=== PATIENT | male | born 1975 | race Caucasian/White ===

== ENCOUNTER 2017-01-04 08:08 | Inpatient (IN) ==
[2017-01-04] MEDS ORDERED: SODIUM CHLORIDE 0.9% 1,000 ML IV STA (10:08)
[2017-01-04] MEDS ORDERED: ONDANSETRON 4 MG/2 ML VIAL IV STA (10:08)
--- NOTE | 2017-01-04 10:10 | Emergency Department Note ---
Mathew Cavazos Brooke, am scribing for, and in the presence of, Sid Carreno MD 10 :09. Wai Cavazos Charles R, MD, personally performed the services described in this documentation, ascribed by Juju Carmona in my presence, and it is both accurate and complete . Arrival - Arrival Chief Complaint: Non-Specific Stated Complaint: kidney problems ED Nursing Triage Note: Pt c/o kidney failure with nausea and vomiting since . Pt was seen here on but signed out AMA before admission. Mode of Arrival: Ambulatory Limitations: No Limitations Source: Patient, RN Notes Reviewed Time Seen by Provider: 01/04/17 09:20 - History of Present Illness HPI Narrative: Patient is a 41 year old male who presents to the ED with c/o nausea, vomiting, and left side pain. Patient was in the ED, on , with same complaint. He says he was told that he had renal failure and it was recommended that he be admitted. However, Patient left AMA and states I didn't want to stay. Patient is a poor historian and does not give much information. Patient says he "guesses " he is gaining weight. He says he is still urinating and does have diarrhea. Patient has PMHx of herniated disk at L4 and L5. Patient is a smoker but denies any drug use. Allergies/Adverse Reactions: Allergies Allergy/AdvReac Type Severity Reaction Status Date / Time codeine AdvReac Nausea Verified 12/31/16 17:28 ketorolac [From Toradol] AdvReac Nausea Verified 12/31/16 17:28 Review of System - Review of System 12 point system: reviewed and no additional remarkable complaints except as stated - Review of System Constitutional: Present: weight gain. Absent: fever Respiratory: Absent: respiratory distress Gastrointestinal: Present: nausea, vomiting, diarrhea Musculoskeletal: Present: other (left side pain) Skin: Absent: rash Medical,Surgical,& Family Hx - Medical History Psychological: History of: Bipolar Disorder Musculoskeletal: History of: Back/Neck Problems (Herniated Disk Lumbar) - Surgical History Orthopedic Surgeries: Surgical HX of;: Orthopedic Surgery - Family History Family History: Reports;: Family Hypertension - Social History Smoking Status: Current every day smoker Frequency of Alcohol Use: None Type of Drug Use: None Exam Vital Signs: Vital Signs Temperature 97.0 F L 01/04/17 08:36 Pulse Rate 92 H 01/04/17 08:36 Respiratory Rate 16 01/04/17 08:36 Blood Pressure 182/108 01/04/17 08:36 O2 Sat by Pulse Oximetry 96 01/04/17 08:14 - General General appearance: alert, in no apparent distress, other (poor historian) - Head Head exam: Present: atraumatic, normocephalic - Eye Eye exam: Present: normal appearance, PERRL, EOMI - ENT ENT exam: Present: normal exam - Neck Neck exam: Present: normal inspection - Chest Chest inspection: Present: normal inspection, symmetric chest wall rise - Respiratory Respiratory exam: Present: normal lung sounds bilaterally - Cardiovascular Cardiovascular exam: Present: regular rate, normal rhythm, normal heart sounds - Abdominal Exam Abdominal exam: Present: soft, normal bowel sounds. Absent: distention, tenderness - Extremities Exam Extremities exam: Present: normal inspection - Back Exam Back exam: Present: tenderness (left side) - Neurological Exam Neurological exam: Present: alert, oriented X3 - Psychiatric Psychiatric exam: Present: normal affect, normal mood - Skin Skin exam: Present: warm, dry, intact, normal color Course - Consultations Consultation #1: Hospitalist will admit patient Time: 11:54 Results - Labs CBC & BMP: 01/04/17 10:33 01/04/17 10:33 Lab Results: I have reviewed the patients labs Labs: Laboratory Tests 01/04/17 10:33 WBC 18.6 H RBC 4.56 Hgb 14.0 Hct 39.6 L MCV 86.8 L MCH 31 MCHC 35.4 RDW 13.2 Plt Count 234 D MPV 11.6 Neut % (Auto) 78.0 H Lymph % (Auto) 8.6 L Saunders % (Auto) 11.3 Eos % (Auto) 1.1 Baso % (Auto) 0.5 Neut # (Auto) 14.5 H Lymph # (Auto) 1.6 Saunders # (Auto) 2.1 H Eos # (Auto) 0.2 Baso # (Auto) 0.1 Immature Gran % 0.5 Nucleated RBC % 0.0 Immature Gran # 0.10 Nucleated RBCs # 0.00 Immature Plt Fraction 2.3 Laboratory Tests 01/04/17 01/04/17 10:33 10:33 Platelet Estimate Adequate Giant Platelets Few Hypochromasia 1+ Sodium 141 Potassium 4.3 Chloride 109 H Carbon Dioxide 21 Anion Gap 15.3 H BUN 106 H Creatinine 5.60 H GFR Calculation 14 BUN/Creatinine Ratio 18.00 Glucose 113 H Calculated Osmolality 314.3 H Calcium 8.9 D Total Bilirubin 0.80 AST 60 H ALT 94 H Alkaline Phosphatase 100 Total Protein 7.4 Albumin 3.2 L Globulin 4.2 H Albumin/Globulin Ratio 0.7 L Amylase 219 H Lipase 949.0 H Laboratory Tests 01/04/17 11:40 Serum Alcohol < 15 L - Diagnostic Findings Procedure: Abdominal x-ray: report reviewed by me (Possible splenomegaly. Possible mild enlargement of both kidneys. Ultrasound recommended.), Chest x-ray : report reviewed by me (No acute abnormality.), CT Abdomen and Pelvis: report reviewed by me, pending (1. No acute intra-abdominal or pelvic pathology. No urolithiasis. Normal appendix. 2. Asymmetry of the kidneys. left larger than right. Is there history of medical renal disease? No perinephric fat stranding suggest infection and no hyponephrosis.) Critical Care Time Critical Care Time: Yes Total Critical Care Time: 60 Disposition Clinical Impression: Acute renal failure, Hypertension, Elevated liver enzymes, Leukocytosis Case discussed with: patient Disposition: Still a Patient Condition: Stable Time of Disposition: 11:54
[2017-01-04] MEDS ORDERED: ONDANSETRON 4 MG/2 ML VIAL ONE (10:40)
[2017-01-04 10:41] LABS: Basophils # 0.1 10*3/uL (0.0-0.2); Basophils % 0.5 % (0.0-0.8); Eosinophils # 0.2 10*3/uL (0.0-0.87); Eosinophils % 1.1 % (0.00-10.9); Hematocrit 39.6 VOL% (42.0-52.0); Immature Granulocytes % 0.5 %; Lymphocytes # 1.6 10*3/uL (1.4-4.0); Lymphocytes % 8.6 % (21.2-54.2); Mean Corpuscular HGB Conc 35.4 GM/DL (32-36); Mean Corpuscular Hemoglobin 31 PG (27-34); Mean Corpuscular Volume 86.8 FL (87-102); Mean Platelet Volume 11.6 FL (9.6-12.0); Monocytes # 2.1 10*3/uL (0.11-0.8); Monocytes % 11.3 % (1.7-12.7); Neutrophils # 14.5 10*3/uL (1.4-7.4); Platelet Count 234 T/CUMM (130-400); Red Blood Count 4.56 MC/CUMM (3.8-5.5); Red Cell Distribution Width 13.2 % (9.3-17.3); White Blood Count 18.6 T/CUMM (4-12)
[2017-01-04] MEDS ORDERED: hydrALAZINE 20 MG/1 ML VIAL ONE (10:44)
[2017-01-04] MEDS ORDERED: MORPHINE 2 MG/1 ML SYRINGE ONE (10:44)
[2017-01-04] MEDS ORDERED: MORPHINE 2 MG/1 ML SYRINGE IV STA (10:48)
[2017-01-04] MEDS ORDERED: hydrALAZINE 20 MG/1 ML VIAL IV STA (10:49)
[2017-01-04 11:02] LABS: Giant Platelets Few; Hypochromasia 1+; Platelet Estimate Adequate
[2017-01-04 11:11] LABS: Albumin 3.2 G/DL (3.4-5.0); Bilirubin,Total 0.8 MG/DL (0.2-1.0); Calcium 8.9 MG/DL (8.5-10.1); Osmolality,Calculated 314.3 MOS/KG (273-304); Potassium 4.3 MMOL/L (3.5-5.1); Total Protein 7.4 G/DL (6.4-8.3)
--- NOTE | 2017-01-04 11:21 | XRay Report ---
2 view abdomen. Indication: Nausea and vomiting. The heart is normal in size. The lung bases are clear. The bowel gas pattern is normal. Borderline enlargement of the spleen. Suspected borderline enlargement of the kidneys. No abnormal calcifications. Mild degenerative changes of the spinal column and hips. Impression: Possible splenomegaly. Possible mild enlargement of both kidneys. Ultrasound recommended. PROCEDURE INTERPRETED AT [facility] DEPARTMENT OF RADIOLOGY Final Report Signed by: Dr. Jaye Paiz
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
--- NOTE | 2017-01-04 11:53 | CT Report ---
CT abdomen pelvis wo con Indication: Left flank pain. CT ABDOMEN AND PELVIS WITHOUT CONTRAST DLP: 390 mGy*cm. One or more of the following dose reduction techniques was used: Automated exposure control, adjustment of the mA and/or kV according the patient size, or use of iterative reconstruction techniques. Comparison: None. Technique: Axial noncontrast CT images of the abdomen and pelvis were obtained. Abdomen: Unenhanced liver and spleen are both slightly large. No focal lesion identified in either. Gallbladder, pancreas, and adrenal glands are unremarkable absent contrast. No focal lesion, calcification or hydronephrosis of either kidney is shown. Left kidney is larger than the right but there is no perinephric fat stranding present. Inferior mediastinal contents are within normal limits. Lung bases are clear. No bowel obstruction or inflammation. Aorta is not aneurysmal. Pelvis: Normal appendix without inflammation. Urinary bladder, prostate and rectosigmoid colon are within normal limits. No free fluid, free air or lymphadenopathy. No infiltrative bone lesions. Impression: 1. No acute intra-abdominal or pelvic pathology. No urolithiasis. Normal appendix. 2. Asymmetry of the kidneys, left larger than right. Is there history of medical renal disease? No perinephric fat stranding suggest infection and no hydronephrosis. PROCEDURE INTERPRETED AT [facility] DEPARTMENT OF RADIOLOGY Final Report Signed by: Chang Gonsalves M.D.
--- NOTE | 2017-01-04 12:43 | Hospitalist History & Physical ---
<Myra Gupta - Last Filed: 01/04/17 12:23> Assessment and Plan - Time spent with patient Time spent with patient: Greater than 30 minutes (1) Acute renal failure Status: Acute Assessment and plan: Ultrasound of kidneys ordered. Repeat labs in a.m. and monitor creatinine. Start IV fluids. Current Visit: No (2) Pancreatitis Status: Acute Assessment and plan: Start IV fluids, pain management and clear liquids. Current Visit: Yes History of Present Illness Chief complaint: abdominal pain History of present illness: Mr. Covington is a 41 year old white male with PMHx of Bipolar Disorder, Hepatitis C (Dx in 1999), chronic back/neck pain(Dr Marquis pt). He reports nausea , vomiting, diarrhea since the 1st of the month. He denies blood in urine, stool or vomitus. He denies shortness of breath, chest pain, fever, or chills. He denies alcohol use or drug use. He reports quitting smoking yesterday. He was seen in the ED on 12/31/16 at which time it was recommended to be admitted to the hospital for noted elevated Creatinine of 14.40 but patient left AMA ; today creatinine is 5.40 and he complains of generalized abdominal pain, greater to the left than right. In ED: Abd xray- possible spenomegaly; possible mild enlargement of both kidneys; US ordered. CXR: no acute abnormality. ABD/Pelvis CT: no acute intra- abdominal or pelvic pathology, no urolithiasis, normal apependix, asymmetry of the kidneys left larger than the right, there is no perinephric fat stranding suggestion infection and no hydro-nephrosis. LABS: WBC 18.6, BUN 106, creatinine 5.60, BUN 106,BUN 106; Creatinine 5.60; Calculated osmolality 314.3; AST 60; ALT 94; Lipase 949.0; Amylase 219. Noted on 12/31/16 Hepatitis C Antibody resulted: Positive After discussion with Dr Carreno in the ED and Dr Smith with Hospitalist Services. , it was agreed to admit patient for further evaluation. Patient does not have any current home medications to be reconciled. Patient denies a primary care physician. He is a patient of Dr Marquis for history of chronic back and neck pain. Allergies Allergy/AdvReac Type Severity Reaction Status Date / Time codeine AdvReac Nausea Verified 12/31/16 17:28 ketorolac [From Toradol] AdvReac Nausea Verified 12/31/16 17:28 Medical,Surgical,& Family Hx - Medical History Psychological: History of: Bipolar Disorder Gastrointestinal: History of: Hepatitis (Hepatitis C (dx in 2000)) Musculoskeletal: History of: Back/Neck Problems (Herniated Disk Lumbar) - Surgical History Orthopedic Surgeries: Surgical HX of;: Orthopedic Surgery - Family History Family History: Reports;: Family Hypertension - Social History Smoking Status: Current every day smoker (He states he quit smoking yesterday) Frequency of Alcohol Use: None Type of Drug Use: None Marital Status: Single Lives With:: Parent (he lives with his parents) Functional capacity: independent ambulation Review of systems: ROS completed and pertinent positives and negatives in the HPI. Exam - Constitutional Vitals: Period Temp Pulse Resp BP Sys/Collins Pulse Ox Last 24 Hr 97.0 F-97.0 F 92-92 16-16 182-182/108-108 96 General appearance: normal weight - Head Head exam: Present: normal inspection - Eye Eye exam: Present: EOMI Pupils: Present: OLENA - Neck Neck exam: Present: normal inspection. Absent: thyromegaly - Respiratory Respiratory exam: Present: clear to auscultation bilaterally. Absent: rhonchi, stridor, wheezes - Cardiovascular Cardiovascular exam: Present: regular rate and rhythm - GI/Abdominal GI/Abdominal exam: Present: normal bowel sounds, tenderness, soft (generalized tenderness). Absent: rebound - Extremities Exam Extremities exam: Present: full ROM. Absent: edema - Neurological Exam Neurological exam: Present: alert, oriented X3 - Psychiatric Psychiatric exam: Present: normal affect, normal mood. Absent: agitated - Skin Skin exam: Present: normal color, warm, dry Results - Labs CBC & BMP: 01/04/17 10:33 01/04/17 10:33 Lab Results: I have reviewed the past 24 hour labs Labs: NOTED 12/31/16 while in the ED (prior to leaving AMA) : Hepatitis C antibody positive Creatinine 14.40 down today to 5.60 - Diagnostic Findings Procedure: Abdominal x-ray: report reviewed by me (possible splenomegaly; possible mild enlargement of both kidneys), Chest x-ray: report reviewed by me ( no acute abnomality), CT Abdomen and Pelvis: report reviewed by me (no acute intra-abdominal or pelvic pathology; no urolithiasis; normal appendix; asymmetry of the kidneys, left larger than right; no perinephric fat stranding suggest infection and no hydronephrosis) <Mariah Smith - Last Filed: 01/04/17 17:27> History of Present Illness History of present illness: Patient seen and examined independently of BLEACH TESTER Gupta, agree with history, assessment and plan as documented. 41 y/o WM presents with abdominal pain. He denies nausea to me, does report that he has not had much of an appetite. In the ED, found to have an elevated lipase and creatinine. Of note he was in the ED 12/31 and had a creatinine of 14 and left AMA. He will now be admitted for pancreatitis and acute kidney injury. His creatinine is down to 5 today. Will start IV fluids. Renal ultrasound, urine lytes. Will consult nephrology in the am. Exam - Constitutional Vitals: Period Temp Pulse Resp BP Sys/Collins Pulse Ox Last 24 Hr 96.4 F-97.8 F 92-95 16-20 142-182/80-108 95-98 Results - Labs CBC & BMP: 01/04/17 10:33 01/04/17 10:33
[2017-01-04] MEDS ORDERED: MORPHINE 2 MG/1 ML SYRINGE IV PRN ×2 (12:58→13:05)
[2017-01-04 13:51] LABS: HIV Antigen/Antibody Result Nonreactive (Nonreactive); Hepatitis A Ab IgM Quant 0.17 Index; Hepatitis A Ab IgM Result Negative (Negative); Hepatitis B Core IgM Quant 0.06 Index; Hepatitis B Core IgM Result Negative (Negative); Hepatitis B Surface Ag Quant 0.24 Index; Hepatitis B Surface Ag Result Negative (Negative); Hepatitis C Virus Ab Quant > 11.00 Index; Hepatitis C Virus Ab Result Positive (Negative)
[2017-01-04] MEDS: SODIUM CHLORIDE 0.9% 1,000 ML IV SCH ×3 (14:00→19:30)
[2017-01-04 14:27] LABS: Apearance,Urine CLEAR (Clear); Bilirubin,Urine Negative (Negative); Blood, Urine Small mg/dL (Negative); Glucose,Urine (UA) Negative (Negative); Hyaline Casts,Urine 1 /LPF (0-3); Ketones,Urine Negative (Negative); Mucus,Urine Occasional /LPF (Occasional); Nitrite,Urine Negative (Negative); Protein,Urine Negative; RBC,Urine 2 /HPF (0-4); Urine Color Straw (Yellow); Urine Specific Gravity 1.008 (1.001-1.035); Urine Urobilinogen < 2.0 EU/DL (0.2-1.0); WBC,Urine 5 /HPF (0-6)
[2017-01-04 14:42] LABS: Barbiturates Screen,Urine Negative (Negative); Benzodiazepines Screen,Urine Negative (Negative); Cannabinoid Screen,Urine Negative (Negative); Opiate Screen,Urine Positive (Negative); Phencyclidine Screen,Urine Negative (Negative)
--- NOTE | 2017-01-04 15:08 | Ultrasound Report ---
US renal Bilateral Indication: Acute renal failure. Asymmetry of the kidneys on CT. RENAL ULTRASOUND: Grayscale and color Doppler imaging the kidneys performed. Right kidney measures 116 x 51 x 55 mm. Left kidney measures 144 x 71 x 71 mm. No hydronephrosis, mass, cyst or calcification identified on either side. Color Doppler flow at both renal cee documented. The echotexture of both kidneys is relatively isoechoic to the liver, therefore increased slightly. Impression: Asymmetry of the kidneys, left larger than right. Mildly increased echotexture of renal parenchyma suggesting medical renal disease, not otherwise specified. No hydronephrosis. PROCEDURE INTERPRETED AT [facility] DEPARTMENT OF RADIOLOGY Final Report Signed by: Chang Gonsalves M.D.
[2017-01-04] MEDS: MORPHINE 2 MG/1 ML SYRINGE IV PRN ×2 (15:35→20:44)
[2017-01-04] MEDS: ONDANSETRON 4 MG/2 ML VIAL IV PRN ×2 (15:37→22:07)
[2017-01-04] MEDS: GABAPENTIN 600 MG TABLET PO SCH ×2 (15:49→20:45)
[2017-01-04] MEDS: HydrOXYzine PAMOATE 50 MG CAPSULE PO SCH (17:45)
[2017-01-05] MEDS: MORPHINE 2 MG/1 ML SYRINGE IV PRN ×6 (00:25→20:40)
[2017-01-05] MEDS: SODIUM CHLORIDE 0.9% 1,000 ML IV SCH ×4 (00:27→16:33)
[2017-01-05 06:26] LABS: Basophils # 0.1 10*3/uL (0.0-0.2); Basophils % 0.4 % (0.0-0.8); Eosinophils # 0.3 10*3/uL (0.0-0.87); Hematocrit 34.3 VOL% (42.0-52.0); Hemoglobin 11.6 GM/DL (14.0-18.0); Immature Granulocytes % 0.5 %; Immature Granulocytes Absolute 0.07 #; Lymphocytes # 2.2 10*3/uL (1.4-4.0); Lymphocytes % 16.3 % (21.2-54.2); Mean Corpuscular HGB Conc 33.8 GM/DL (32-36); Mean Corpuscular Hemoglobin 30 PG (27-34); Mean Corpuscular Volume 87.9 FL (87-102); Mean Platelet Volume 10.6 FL (9.6-12.0); Monocytes # 1.7 10*3/uL (0.11-0.8); Monocytes % 12.3 % (1.7-12.7); Neutrophils # 9.4 10*3/uL (1.4-7.4); Neutrophils % 68.5 % (38.7-73.9); Platelet Count 196 T/CUMM (130-400); Red Cell Distribution Width 13.1 % (9.3-17.3); White Blood Count 13.7 T/CUMM (4-12)
[2017-01-05 06:38] LABS: INR 1.1; PT Patient Result 11.3 SECS
[2017-01-05 06:58] LABS: Albumin 2.6 G/DL (3.4-5.0); Bilirubin,Total 0.7 MG/DL (0.2-1.0); Calcium 8.6 MG/DL (8.5-10.1); Magnesium 1.6 MG/DL (1.8-2.4); Osmolality,Calculated 307.8 MOS/KG (273-304); Potassium 3.9 MMOL/L (3.5-5.1); Total Protein 6.1 G/DL (6.4-8.3)
[2017-01-05 07:06] LABS: VLDL CHOLESTEROL 10.8 MG/DL
[2017-01-05] MEDS: GABAPENTIN 600 MG TABLET PO SCH ×2 (08:45→20:40)
[2017-01-05] MEDS: HydrOXYzine PAMOATE 50 MG CAPSULE PO SCH ×3 (08:45→16:33)
[2017-01-05] MEDS: PANTOPRAZOLE 40 MG VIAL IV SCH (08:46)
[2017-01-05] MEDS: ARIPiprazole 10 MG TABLET PO SCH (09:48)
--- NOTE | 2017-01-05 09:51 | Nephrology Consult Note ---
History of Present Illness Chief complaint: Admitted with N/V/D, referred for resolving ROSELYN History of present illness: Mr. Covington is a 41 year old male with bipolar d/o, Hx of HCV, chronic low back pain. Seen in Ed 12/31/2016 with creatinine 14 and BUN >100. Was to be admitted, left AMA. Now with same c/o abd pain R>L. Creatinine 5.6 yesterday, down to 3.8 this am. LAEs slightly elevated and decreasing. Lipase 925. UA SG 1.008, pH 5.0, no proteinuria, trace blood 2 RBCs on micro. U/S reveals large kidneys bilat, R 11.6, L 14.4, no hydronephrosis, mass, cyst, stone. Mildly increased echogenicity. Creatinined 0.8 in 2014. WBC 18.6k on admission, down to 13 today. Home Medications Medication Instructions Recorded Confirmed Type ARIPiprazole [Abilify] 10 mg PO DAILY 01/04/17 01/04/17 History Gabapentin [Gabapentin] 600 mg PO TID 01/04/17 01/04/17 History HydrOXYzine PAMOATE CAP [Vistaril 50 mg PO TID 01/04/17 01/05/17 History Cap] traZODone [Desyrel] 300 mg PO BEDTIME 01/04/17 01/05/17 History Allergies Allergy/AdvReac Type Severity Reaction Status Date / Time codeine AdvReac Nausea Verified 12/31/16 17:28 ketorolac [From Toradol] AdvReac Nausea Verified 12/31/16 17:28 Medical,Surgical,& Family Hx - Medical History Psychological: History of: Bipolar Disorder Gastrointestinal: History of: Hepatitis (Hepatitis C (dx in 1999)) Musculoskeletal: History of: Back/Neck Problems (Herniated Disk Lumbar l4 l5 both sides) - Surgical History Orthopedic Surgeries: Surgical HX of;: Orthopedic Surgery (Left arm compound fracture) - Family History Family History: Reports;: Family Hypertension Denies;: Family Cancer - Social History Smoking Status: Former smoker Frequency of Alcohol Use: None Type of Drug Use: None Exam - Vital Signs Vital signs: Period Temp Pulse Resp BP Sys/Collins Pulse Ox Last 24 Hr 96.4 F-99.4 F 77-105 18-20 102-176/56-98 92-98 - General Appearance General appearance: well-developed, well-nourished EENT: ATNC, PERRL, mucous membranes dry, hearing intact, vision intact Neck: no JVD, no thyromegaly Respiratory: no kyphosis, clear Cardiology: no murmurs, no rub Gastrointestinal: normoactive bowel sounds, no tenderness Integumentary: no rash, warm and dry Neurologic: no focal deficit, no asterixis, alert and oriented x3 Musculoskeletal: no deformities, no erythema Psychiatric: mood/affect appropriate, cooperative Results - Labs CBC & BMP: 01/05/17 06:05 01/05/17 06:05 Assessment and Plan (1) Acute renal failure Problem details: Most likely related to volume depletion from N/V/D. Resolving rapidly, no indication for renal replacement therapy at this time. Size disccrepancy on u/s could be related to renovascular HTN. Status: Acute Assessment and plan: Urinary indices to assess for intrinsic vs prerenal process. GN serologies. Doubt paraproteinemia with normal total globulins. Doubt true pancreatitis as renal failure is the most common cause of pseudopancreatitis. Current Visit: Yes (2) Hypertension Status: Acute Current Visit: Yes
[2017-01-05 10:14] LABS: Free T4 (Free Thyroxine) 1.52 NG/DL (0.76-1.46); Thyroid Stimulating Hormone 2.84 uIU/ml (0.358-3.74)
--- NOTE | 2017-01-05 12:35 | Gastrointestinal Consult Note ---
<Cindi Griffin - Last Filed: 01/05/17 12:29> Assessment and Plan (1) Elevated liver enzymes Status: Acute Assessment and plan: 01/05-Hx of Hepatitis C with dx in 1999 with Hep RNA pending. No prior followup regarding this. Mild elevation in transaminases with AST 47, ALT 73. CT of abdomen noted as below. Plan and addendum to follow by Dr Lester. Current Visit: Yes (2) Pancreatitis Status: Acute Assessment and plan: 01/05-Elevated lipase/amylase on admission with several day history of LUQ abd pain w/o history of alcohol use. Mildly elevated transaminases. OBtain Abd US tomorrow. Repeat lipase tomorrow. Plan and addendum to follow by Dr Lester. Current Visit: Yes History of Present Illness Chief complaint: Abdominal pain History of present illness: Mr. Covington is a 41 year old male who was admitted to the hospital on yesterday with complaints of abdominal pain. Pt has a prior history of Hepatitis C (diagnosed in 1999), bipolar disorder, chronic pain followed by DR Marquis. He states that earlier this month he had onset of nausea, vomiting and diarrhea as well as some LUQ abdominal pain. He states that this came on fairly sudden however denies any coffee ground or hemetemesis as well as melena or hematochezia. He states that he has also lost approximately 20 pounds since onset however is uncertain as to this accuracy. He denies any alcohol or illicit drug use. He does have homemade tattoos and is not followed up with anyone regarding his Hepatitis C. He states he did not receive treatment for this as well. Pt recently was found to have a Creatnine of 14.4 during an ER visit however left AMA before he could be admitted despite being informed he needed to stay. He was not feeling well this week and presented back to the hospital and was found to have elevated Creatnine still at 5.4 and was then agreeable to being admitted for further workup. CT of abdomen on admission w/o contrast shows no acute [place] [address]. Mild elevation noted in transaminases. Lipase elevated at 925 as well as amylase at 219. Home Medications Medication Instructions Recorded Confirmed Type ARIPiprazole [Abilify] 10 mg PO DAILY 01/04/17 01/04/17 History Gabapentin [Gabapentin] 600 mg PO TID 01/04/17 01/04/17 History HydrOXYzine PAMOATE CAP [Vistaril 50 mg PO TID 01/04/17 01/05/17 History Cap] traZODone [Desyrel] 300 mg PO BEDTIME 01/04/17 01/05/17 History Allergies Allergy/AdvReac Type Severity Reaction Status Date / Time codeine AdvReac Nausea Verified 12/31/16 17:28 ketorolac [From Toradol] AdvReac Nausea Verified 12/31/16 17:28 Medical,Surgical,& Family Hx - Medical History Psychological: History of: Bipolar Disorder Gastrointestinal: History of: Hepatitis (Hepatitis C (dx in 1999)) Musculoskeletal: History of: Back/Neck Problems (Herniated Disk Lumbar l4 l5 both sides) - Surgical History Orthopedic Surgeries: Surgical HX of;: Orthopedic Surgery (Left arm compound fracture) - Family History Family History: Reports;: Family Hypertension Denies;: Family Cancer - Social History Smoking Status: Former smoker Frequency of Alcohol Use: None Type of Drug Use: None 12 point system: reviewed and no additional remarkable complaints except as stated - Constitutional Constitutional: Present: as per HPI - EENT Eyes: Present: as per HPI Ears: Present: as per HPI Nose, mouth and throat: Present: as per HPI - Cardiovascular Cardiovascular: Present: as per HPI - Respiratory Respiratory: Present: as per HPI - Gastrointestinal Gastrointestinal: Present: as per HPI, abdominal pain, nausea - Genitourinary Genitourinary: Present: as per HPI - Musculoskeletal Musculoskeletal: Present: as per HPI - Neurological Neurological: Present: as per HPI - Psychiatric Psychiatric: Present: as per HPI - Endocrine Endocrine: Present: as per HPI - Hematologic/Lymphatic Hematologic/Lymphatic: Present: as per HPI Exam - Constitutional Vitals: Period Temp Pulse Resp BP Sys/Collins Pulse Ox Last 24 Hr 96.4 F-99.4 F 77-105 18-20 102-176/56-98 92-98 General appearance: normal weight, no acute distress - Head Head exam: Present: normal inspection, normocephalic - Eye Eye exam: Present: other (lids and conjunctiva unremarkable). Absent: scleral icterus - ENT ENT exam: Present: normal exam, normal oropharynx - Neck Neck exam: Present: normal inspection - Respiratory Respiratory exam: Present: clear to auscultation bilaterally. Absent: rales, rhonchi, wheezes - Cardiovascular Cardiovascular exam: Present: regular rate and rhythm. Absent: diastolic murmur , JVD, systolic murmur - GI/Abdominal GI/Abdominal exam: Present: normal bowel sounds, tenderness, soft. Absent: ascites, distended, mass, organomegaly - Extremities Exam Extremities exam: Present: normal inspection, full ROM - Back Exam Back exam: Present: normal inspection - Neurological Exam Neurological exam: Present: alert, oriented X3 - Psychiatric Psychiatric exam: Present: normal affect, normal mood - Skin Skin exam: Present: normal color, warm, dry Results - Labs CBC & BMP: 01/05/17 06:05 01/05/17 06:05 Lab Results: I have reviewed the past 24 hour labs - Diagnostic Findings Procedure: CT Abdomen and Pelvis: report reviewed by me <Charanjit Lester - Last Filed: 01/05/17 17:32> History of Present Illness History of present illness: Mr. Covington is a 41 year old male Exam - Constitutional Vitals: Period Temp Pulse Resp BP Sys/Collins Pulse Ox Last 24 Hr 97 F-99.4 F 77-105 18-20 102-170/56-98 92-96 Results - Labs CBC & BMP: 01/05/17 06:05 01/05/17 06:05
--- NOTE | 2017-01-05 15:59 | Hospitalist Progress Note ---
Assessment and Plan (1) Acute renal failure Problem details: Most likely related to volume depletion from N/V/D. Resolving rapidly, no indication for renal replacement therapy at this time. Size disccrepancy on u/s could be related to renovascular HTN. Status: Acute Assessment and plan: Improving Continue IV fluids Nephrology on board Current Visit: Yes (2) Hypertension Status: Acute Current Visit: Yes (3) Pancreatitis Status: Acute Assessment and plan: Lipase elevated, clinical picture not consistent with pancreatitis Continue IV fluids Tolerating diet Current Visit: Yes Hospitalist: Subjective Interval history: No acute events overnight. Abdominal pain is better. Tolerating clear liquid diet. Exam - Constitutional Vitals: Period Temp Pulse Resp BP Sys/Collins Pulse Ox Last 24 Hr 96.4 F-99.4 F 77-105 18-20 102-170/56-98 92-96 General appearance: normal weight - Head Head exam: Present: normocephalic, atraumatic - Eye Eye exam: Present: EOMI Pupils: Present: OLENA - ENT ENT exam: Present: normal exam - Neck Neck exam: Present: normal inspection - Respiratory Respiratory exam: Present: clear to auscultation bilaterally - Cardiovascular Cardiovascular exam: Present: regular rate and rhythm - GI/Abdominal GI/Abdominal exam: Present: normal bowel sounds, soft. Absent: tenderness, rebound - Extremities Exam Extremities exam: Present: normal inspection - Back Exam Back exam: Present: normal inspection - Neurological Exam Neurological exam: Present: alert, oriented X3 - Psychiatric Psychiatric exam: Present: normal affect, normal mood - Skin Skin exam: Present: warm, intact Results - Labs CBC & BMP: 01/05/17 06:05 01/05/17 06:05
[2017-01-06] MEDS: MORPHINE 2 MG/1 ML SYRINGE IV PRN ×3 (02:06→12:57)
[2017-01-06] MEDS: SODIUM CHLORIDE 0.9% 1,000 ML IV SCH ×2 (02:33→08:22)
[2017-01-06 07:42] LABS: Calcium 9.4 MG/DL (8.5-10.1); Magnesium 1.5 MG/DL (1.8-2.4); Osmolality,Calculated 305.3 MOS/KG (273-304)
--- NOTE | 2017-01-06 08:26 | Ultrasound Report ---
Abdomen ultrasound complete. Indication: Elevated liver function tests and generalized abdominal pain. Comparison: Previous CT of the abdomen and pelvis dated 01-03, and previous ultrasound of the kidneys dated 01-04-2017. The liver is normal in size and parenchymal echogenicity without focal lesion or intrahepatic biliary ductal dilatation. The common duct measures 3 mm. There are no gallstones. There is no para cholecystic fluid or tenderness over the gallbladder. The gallbladder wall is borderline thickened at 4 mm. The pancreas is partially scattered by bowel gas. Visualized portions appear normal. There is no splenic enlargement. The IVC is patent. The abdominal aorta is of normal caliber. The left kidney is mildly prominent in size measuring 14.1 x 6.7 x 6.0 cm. The right measures 10.5 x 5.8 x 5.5 cm. The parenchymal echogenicity of the kidneys is mildly increased. No hydronephrosis. No focal lesions. Impression: 1. Borderline gallbladder wall thickening, without any other suspicious gallbladder findings. 2. Mild enlargement of the left kidney. Correlation with UA to exclude pyelonephritis. Increased renal parenchymal echogenicity, which can indicate radical renal disease. The Ultrasound images were captured and stored. PROCEDURE INTERPRETED AT [facility] [place] DEPARTMENT OF RADIOLOGY Final Report Signed by: Dr. Jaye Paiz
[2017-01-06] MEDS: PANTOPRAZOLE 40 MG VIAL IV SCH (08:52)
[2017-01-06] MEDS: HydrOXYzine PAMOATE 50 MG CAPSULE PO SCH ×3 (08:56→17:05)
[2017-01-06] MEDS: ARIPiprazole 10 MG TABLET PO SCH (09:04)
--- NOTE | 2017-01-06 10:36 | Gastrointestinal Progress Note ---
Assessment and Plan (1) Elevated liver enzymes Status: Acute Assessment and plan: 01/06-no repeat liver panel noted. Lipase levels trending downward at 245. Abdominal ultrasound without acute findings. Awaiting hepatitis C RNA results. Plan an addendum to followed by Dr. Lester. 01/05-Hx of Hepatitis C with dx in 1999 with Hep RNA pending. No prior followup regarding this. Mild elevation in transaminases with AST 47, ALT 73. CT of abdomen noted as below. Plan and addendum to follow by Dr Lester. Current Visit: Yes (2) Pancreatitis Status: Acute Assessment and plan: 01/06-lipase level trended down to 245. Abdominal ultrasounds noted as below. Will advance diet at this time. Plan an addendum to followed by Dr. Lester. 01/05-Elevated lipase/amylase on admission with several day history of LUQ abd pain w/o history of alcohol use. Mildly elevated transaminases. OBtain Abd US tomorrow. Repeat lipase tomorrow. Plan and addendum to follow by Dr Lester. Current Visit: Yes Gastroenterology - PN: Subj Interval history: CC: Abdominal pain Patient is seen, lying in bed awake and alert. Denies any abdominal pain at this time. Denies any nausea or vomiting. Abdomen is soft, nontender. Lipase is down to 245 today. Creatinine is also noted to be trending downward at 2.6. Still awaiting hepatitis C RNA results. Abdominal ultrasound with no acute findings noted. ROS: Denies shortness of breath or chest pain Exam (Progress Note) - Constitutional Vitals: Period Temp Pulse Resp BP Sys/Collins Pulse Ox Last 24 Hr 97.4 F-98.9 F 85-95 18-20 119-156/69-96 95-96 - Other Additional findings: General appearance: normal weight, no acute distress - Head Head exam: Present: normal inspection, normocephalic - Eye Eye exam: Present: other (lids and conjunctiva unremarkable). Absent: scleral icterus - ENT ENT exam: Present: normal exam, normal oropharynx - Neck Neck exam: Present: normal inspection - Respiratory Respiratory exam: Present: clear to auscultation bilaterally. Absent: rales, rhonchi, wheezes - Cardiovascular Cardiovascular exam: Present: regular rate and rhythm. Absent: diastolic murmur , JVD, systolic murmur - GI/Abdominal GI/Abdominal exam: Present: normal bowel sounds, tenderness, soft. Absent: ascites, distended, mass, organomegaly - Extremities Exam Extremities exam: Present: normal inspection, full ROM - Back Exam Back exam: Present: normal inspection - Neurological Exam Neurological exam: Present: alert, oriented X3 - Psychiatric Psychiatric exam: Present: normal affect, normal mood - Skin Skin exam: Present: normal color, warm, dry Results - Labs CBC & BMP: 01/05/17 06:05 01/06/17 07:03 Lab Results: I have reviewed the past 24 hour labs
--- NOTE | 2017-01-06 10:50 | Nephrology Progress Note ---
Nephrology - PN: Subj Interval history: Creatinine improved to 2.6 from 3.8 yesterday. Pt denies c/o SOB/pain. Brisk diuresis yesterday approx 3L UOP. Serum sodium up to 148 for mild free water deficit. NS IVFs 2 200cc/hr. Exam (PN)-Nephrology - Vital Signs Vital signs: Period Temp Pulse Resp BP Sys/Collins Pulse Ox Last 24 Hr 97.4 F-98.9 F 85-95 18-20 119-156/69-96 95-96 - General Appearance General appearance: well-developed, well-nourished EENT: ATNC, PERRL, hearing intact, vision intact Neck: no JVD, no thyromegaly Respiratory: no kyphosis, clear Cardiology: no murmurs, no rub Gastrointestinal: normoactive bowel sounds, no tenderness Integumentary: no rash, warm and dry Neurologic: no focal deficit, no asterixis, alert and oriented x3 Musculoskeletal: no deformities, no erythema Psychiatric: mood/affect appropriate, cooperative - Lab 01/05/17 06:05 01/06/17 07:03 Most recent lab results Calcium 9.4 MG/DL (8.5-10.1) 01/06/17 07:03 Magnesium 1.5 MG/DL (1.8-2.4) L 01/06/17 07:03 Assessment and Plan (1) Acute renal failure Problem details: Most likely related to volume depletion from N/V/D. Resolving rapidly, no indication for renal replacement therapy at this time. FeUrea 53% reflecting intrinsic renal process. Most likely ATN with post ATN diuresis ongoing. Status: Acute Assessment and plan: Urinary indices indicated intrinsic process. GN serologies unremarkable. The post ATN diuresis is usually appropriate. IVFs changed to replace some free water. Avoid too aggressive volume resuscitation as this continues to drive diuresis with washout of the medullary interstitium. Current Visit: Yes (2) Hypertension Status: Acute Current Visit: Yes
--- NOTE | 2017-01-06 11:40 | Hospitalist Progress Note ---
Assessment and Plan (1) Hepatitis C Status: Acute Assessment and plan: He is a previously known history of chronic hepatitis C. He has persistently mildly abnormal liver function test. He is being followed by gastroenterology. Current Visit: Yes (2) Acute renal failure Problem details: Most likely related to volume depletion from N/V/D. Resolving rapidly, no indication for renal replacement therapy at this time. FeUrea 53% reflecting intrinsic renal process. Most likely ATN with post ATN diuresis ongoing. Status: Acute Assessment and plan: His BUN and creatinine have improved from 73 and 3.8 yesterday to 50 and 2.6 respectively today. He is being followed by nephrology. I will continue him on intravenous normal saline. Current Visit: Yes (3) Pancreatitis Status: Acute Assessment and plan: He continues to complain of abdominal pain and nausea. His lipase is decreased from 925 yesterday to 245 today. He is being followed by gastroenterology. Current Visit: Yes Hospitalist: Subjective Interval history: Patient states that he is feeling better today, although he continues to complain of nausea and abdominal pain. He is being followed by gastroenterology for acute pancreatitis and chronic hepatitis C and by nephrology for acute renal failure. Exam - Constitutional Vitals: Period Temp Pulse Resp BP Sys/Collins Pulse Ox Last 24 Hr 97.4 F-98.9 F 85-91 18-20 119-156/69-96 95-96 General appearance: no acute distress - Head Head exam: Present: normal inspection - Neck Neck exam: Present: normal inspection - Respiratory Respiratory exam: Present: clear to auscultation bilaterally - Cardiovascular Cardiovascular exam: Present: regular rate and rhythm - GI/Abdominal GI/Abdominal exam: Present: normal bowel sounds, soft, other (No palpable mass or hepatosplenomegaly. Nontender.) - Extremities Exam Extremities exam: Present: normal inspection - Neurological Exam Neurological exam: Present: alert, oriented X3 - Psychiatric Psychiatric exam: Present: normal affect - Skin Skin exam: Present: normal color, warm, intact Results - Labs CBC & BMP: 01/05/17 06:05 01/06/17 07:03
[2017-01-06] MEDS: ONDANSETRON 4 MG/2 ML VIAL IV PRN (12:22)
[2017-01-06] MEDS: DEXTROSE 5% NACL 0.22% 1,000 ML IV SCH (12:28)
[2017-01-06] MEDS: oxyCODONE/ACETAMINOPHEN 5-325 MG TABLET PO PRN ×2 (15:18→21:30)
[2017-01-06] MEDS: GABAPENTIN 600 MG TABLET PO SCH (20:57)
[2017-01-07 05:30] LABS: Basophils % 0.5 % (0.0-0.8); Eosinophils # 0.3 10*3/uL (0.0-0.87); Eosinophils % 4.2 % (0.00-10.9); Hematocrit 31.9 VOL% (42.0-52.0); Immature Granulocytes % 0.5 %; Immature Granulocytes Absolute 0.04 #; Lymphocytes # 1.9 10*3/uL (1.4-4.0); Lymphocytes % 23.1 % (21.2-54.2); Mean Corpuscular HGB Conc 34.5 GM/DL (32-36); Mean Corpuscular Hemoglobin 31 PG (27-34); Mean Corpuscular Volume 88.9 FL (87-102); Mean Platelet Volume 11.2 FL (9.6-12.0); Monocytes % 11.8 % (1.7-12.7); Neutrophils # 4.9 10*3/uL (1.4-7.4); Neutrophils % 59.9 % (38.7-73.9); Platelet Count 169 T/CUMM (130-400); Red Blood Count 3.59 MC/CUMM (3.8-5.5); Red Cell Distribution Width 12.6 % (9.3-17.3); White Blood Count 8.1 T/CUMM (4-12)
[2017-01-07 06:06] LABS: Albumin 2.3 G/DL (3.4-5.0); Bilirubin,Total 0.8 MG/DL (0.2-1.0); Calcium 9.5 MG/DL (8.5-10.1); Osmolality,Calculated 296.7 MOS/KG (273-304); Potassium 3.9 MMOL/L (3.5-5.1); Total Protein 5.6 G/DL (6.4-8.3)
[2017-01-07] MEDS: PANTOPRAZOLE 40 MG VIAL IV SCH (08:07)
[2017-01-07] MEDS: ARIPiprazole 10 MG TABLET PO SCH (08:10)
[2017-01-07] MEDS: HydrOXYzine PAMOATE 50 MG CAPSULE PO SCH ×3 (08:10→16:31)
[2017-01-07] MEDS: oxyCODONE/ACETAMINOPHEN 5-325 MG TABLET PO PRN ×3 (08:10→20:56)
--- NOTE | 2017-01-07 10:34 | Hospitalist Progress Note ---
Assessment and Plan (1) Hepatitis C Status: Acute Assessment and plan: He is a previously known history of chronic hepatitis C. He has persistently mildly abnormal liver function test. He is being followed by gastroenterology. Current Visit: Yes (2) Acute renal failure Problem details: Most likely related to volume depletion from N/V/D. Resolving rapidly, no indication for renal replacement therapy at this time. FeUrea 53% reflecting intrinsic renal process. Most likely ATN with post ATN diuresis ongoing. Status: Acute Assessment and plan: His BUN and creatinine have improved from 73 and 3.8 the day before yesterday to 39 and 2.4 respectively today. He is being followed by nephrology. I will continue him on intravenous normal saline. Current Visit: Yes (3) Pancreatitis Status: Acute Assessment and plan: He is feeling much better with no abdominal pain. His serum lipase has decreased from 925-181. Current Visit: Yes Hospitalist: Subjective Interval history: Patient feels significantly better today. He is not experiencing any abdominal pain, and only experiencing mild nausea. Laboratory testing continues to demonstrate improvement of his renal function and decrease of his serum lipase. Exam - Constitutional Vitals: Period Temp Pulse Resp BP Sys/Collins Pulse Ox Last 24 Hr 97.4 F-98.1 F 63-86 16-20 132-155/71-94 93-97 General appearance: no acute distress - Head Head exam: Present: normal inspection - Neck Neck exam: Present: normal inspection - Respiratory Respiratory exam: Present: clear to auscultation bilaterally - Cardiovascular Cardiovascular exam: Present: regular rate and rhythm - GI/Abdominal GI/Abdominal exam: Present: normal bowel sounds, soft, other (Nontender with no palpable masses or hepatosplenomegaly.) - Extremities Exam Extremities exam: Present: normal inspection - Neurological Exam Neurological exam: Present: alert, oriented X3 - Psychiatric Psychiatric exam: Present: normal affect - Skin Skin exam: Present: normal color, warm, intact Results - Labs CBC & BMP: 01/07/17 04:28 01/07/17 04:28
--- NOTE | 2017-01-07 11:54 | Nephrology Progress Note ---
Nephrology - PN: Subj Interval history: Pt states he feels fine. Creatinine down to 2.4 from 2.6. Bicarb improved and free water deficit improved with bicarb containing fluids at 75cc/hr. Exam (PN)-Nephrology - Vital Signs Vital signs: Period Temp Pulse Resp BP Sys/Collins Pulse Ox Last 24 Hr 97.4 F-98.1 F 63-86 16-20 132-155/71-94 93-97 - General Appearance General appearance: well-developed, well-nourished EENT: ATNC, PERRL, mucous membranes moist, hearing intact, vision intact Neck: no JVD, no thyromegaly Respiratory: no kyphosis, clear Cardiology: no murmurs, no rub, no edema Gastrointestinal: normoactive bowel sounds, no tenderness Integumentary: no rash, warm and dry Neurologic: no focal deficit, no asterixis, alert and oriented x3 Musculoskeletal: no deformities, no erythema Psychiatric: mood/affect appropriate, cooperative - Lab 01/07/17 04:28 01/07/17 04:28 Most recent lab results Calcium 9.5 MG/DL (8.5-10.1) 01/07/17 04:28 Magnesium 1.5 MG/DL (1.8-2.4) L 01/06/17 07:03 Assessment and Plan (1) Acute renal failure Problem details: Most likely ATN, improved. eGFR 37cc/min by CKD-EPI formula, CKD 3. Status: Acute Assessment and plan: Continue current therapy. Stable for d/c from nephrology standpoint. Current Visit: Yes (2) Hypertension Status: Acute Current Visit: Yes
[2017-01-07] MEDS: DEXTROSE 5% NACL 0.22% 1,000 ML IV SCH ×3 (15:22→15:26)
[2017-01-07] MEDS: GABAPENTIN 600 MG TABLET PO SCH (20:56)
[2017-01-08 05:31] LABS: Basophils % 0.5 % (0.0-0.8); Eosinophils # 0.3 10*3/uL (0.0-0.87); Eosinophils % 3.9 % (0.00-10.9); Hematocrit 35.7 VOL% (42.0-52.0); Hemoglobin 12.3 GM/DL (14.0-18.0); Immature Granulocytes % 0.5 %; Immature Granulocytes Absolute 0.04 #; Lymphocytes # 1.9 10*3/uL (1.4-4.0); Lymphocytes % 21.4 % (21.2-54.2); Mean Corpuscular HGB Conc 34.5 GM/DL (32-36); Mean Corpuscular Hemoglobin 30 PG (27-34); Mean Corpuscular Volume 87.3 FL (87-102); Mean Platelet Volume 10.1 FL (9.6-12.0); Monocytes # 0.9 10*3/uL (0.11-0.8); Monocytes % 10.9 % (1.7-12.7); Neutrophils # 5.5 10*3/uL (1.4-7.4); Neutrophils % 62.8 % (38.7-73.9); Platelet Count 170 T/CUMM (130-400); Red Blood Count 4.09 MC/CUMM (3.8-5.5); Red Cell Distribution Width 12.3 % (9.3-17.3); White Blood Count 8.7 T/CUMM (4-12)
[2017-01-08] MEDS: oxyCODONE/ACETAMINOPHEN 5-325 MG TABLET PO PRN ×3 (06:14→18:35)
[2017-01-08 06:16] LABS: Albumin 2.7 G/DL (3.4-5.0); Bilirubin,Total 0.8 MG/DL (0.2-1.0); Calcium 10.2 MG/DL (8.5-10.1); Osmolality,Calculated 295.8 MOS/KG (273-304); Potassium 3.9 MMOL/L (3.5-5.1); Total Protein 6.3 G/DL (6.4-8.3)
[2017-01-08] MEDS: PANTOPRAZOLE 40 MG VIAL IV SCH (09:04)
[2017-01-08] MEDS: ONDANSETRON 4 MG/2 ML VIAL IV PRN ×2 (09:05→20:11)
[2017-01-08] MEDS: ARIPiprazole 10 MG TABLET PO SCH (09:06)
[2017-01-08] MEDS: HydrOXYzine PAMOATE 50 MG CAPSULE PO SCH ×3 (09:06→16:47)
--- NOTE | 2017-01-08 09:10 | Hospitalist Progress Note ---
Assessment and Plan - Time spent with patient Time spent with patient: Greater than 30 minutes (1) Acute renal failure Problem details: Most likely ATN, improved. eGFR 37cc/min by CKD-EPI formula, CKD 3. Status: Acute Current Visit: Yes (2) Hypertension Status: Acute Current Visit: Yes (3) Leukocytosis Status: Acute Current Visit: Yes (4) Elevated liver enzymes Status: Acute Current Visit: Yes (5) Pancreatitis Status: Acute Current Visit: Yes (6) Hepatitis C Status: Acute Assessment and plan: I cannot immediately identify reason for his nausea and vomiting, we will continue symptomatic management with IV fluids, IV Zofran as needed for nausea and vomiting. Monitor renal function. Monitor LFTs. If he continues to have nausea and vomiting, will place him back on oral DVT prophylaxis - he is low risk, encourage ambulation. Current Visit: Yes Hospitalist: Subjective Interval history: Patient being managed for acute pancreatitis, his abdominal pain has improved significantly but he however complains of nausea this morning. I observed one episode of vomiting. He has been on regular diet for a couple of days now. There is no fever recorded. White count is down to 8.7. Lipase however trended back up, 309 today. As well as mild elevation of AST and ALT. I reviewed his ultrasound, no gallstones on ultrasound. We will continue to monitor symptomatically, give IV Zofran and as needed for nausea and vomiting. Exam - Constitutional Vitals: Period Temp Pulse Resp BP Sys/Collins Pulse Ox Last 24 Hr 97.1 F-98.2 F 75-89 18-20 137-146/82-94 93-98 Exam: - Head Head exam: Present: normal inspection - Neck Neck exam: Present: normal inspection - Respiratory Respiratory exam: Present: clear to auscultation bilaterally - Cardiovascular Cardiovascular exam: Present: regular rate and rhythm - GI/Abdominal GI/Abdominal exam: Present: normal bowel sounds, soft, other (Nontender with no palpable masses or hepatosplenomegaly.) - Extremities Exam Extremities exam: Present: normal inspection - Neurological Exam Neurological exam: Present: alert, oriented X3 - Psychiatric Psychiatric exam: Present: normal affect - Skin Skin exam: Present: normal color, warm, intact Results - Labs CBC & BMP: 01/08/17 05:24 01/08/17 05:24 Lab Results: I have reviewed the past 24 hour labs - Diagnostic Findings Procedure: CT Abdomen and Pelvis: report reviewed by me, Ultrasound: report reviewed by me
--- NOTE | 2017-01-08 10:21 | Nephrology Progress Note ---
Nephrology - PN: Subj Interval history: Pt had N/V with restarting regular diet with abd pain. Creatinine stable at 2.0. Exam (PN)-Nephrology - Vital Signs Vital signs: Period Temp Pulse Resp BP Sys/Collins Pulse Ox Last 24 Hr 97.1 F-98.2 F 75-89 18-20 137-146/82-94 93-98 - General Appearance General appearance: well-developed, chronically ill EENT: ATNC, PERRL Neck: no JVD, no thyromegaly Respiratory: no kyphosis, clear Cardiology: no murmurs, no rub Gastrointestinal: normoactive bowel sounds, no tenderness Integumentary: no rash, warm and dry Neurologic: no focal deficit, no asterixis, alert and oriented x3 Musculoskeletal: no deformities, no erythema Psychiatric: mood/affect appropriate, cooperative - Lab 01/08/17 05:24 01/08/17 05:24 Most recent lab results Calcium 10.2 MG/DL (8.5-10.1) H 01/08/17 05:24 Magnesium 1.5 MG/DL (1.8-2.4) L 01/06/17 07:03 Assessment and Plan (1) Acute renal failure Problem details: Most likely ATN, improved. eGFR 38cc/min by CKD-EPI formula, CKD 3. Status: Acute Assessment and plan: Continue current therapy. Stable for d/c from nephrology standpoint. Current Visit: Yes (2) Hypertension Status: Acute Current Visit: Yes
[2017-01-08] MEDS: DEXTROSE 5% NACL 0.22% 1,000 ML IV SCH (11:04)
[2017-01-08] MEDS: GABAPENTIN 600 MG TABLET PO SCH (21:02)
[2017-01-09] MEDS: oxyCODONE/ACETAMINOPHEN 5-325 MG TABLET PO PRN (02:12)
[2017-01-09 08:31] VITALS: BP 140/87
--- NOTE | 2017-01-09 09:32 | Discharge Summary ---
Hospital Course - Hospital Course Hospital Course: 41-year-old man with history of bipolar disorder, hepatitis who presented with classic features of acute pancreatitis with abdominal pain, nausea and vomiting. Also found to be in acute kidney injury likely due to GI losses from vomiting. He denies alcohol use and ultrasound of the abdomen did not suggest gallstones so the etiology of his acute pancreatitis was unclear. He was admitted to the floor, treated conservatively, on IV fluids, pain medication and bowel rest. Gastroenterology was consulted to help in his care. They endorsed conservative management of his condition and plan to follow up with him as outpatient for management of his hepatitis C. Nephrology was also consulted for acute kidney injury, renal function improved with IV fluid hydration and they cleared him for discharge to outpatient follow- up. Rest of his hospital stay was uneventful On the day of discharge, he was back to his usual state of health Abdominal pain had completely subsided, he was tolerating oral feeds. - Time spent with patient Time with patient DS: Greater than 30 minutes Diagnosis - Discharge Diagnosis (1) Acute renal failure Status: Acute (2) Hypertension Status: Acute (3) Leukocytosis Status: Acute (4) Elevated liver enzymes Status: Acute (5) Pancreatitis Status: Acute (6) Hepatitis C Status: Acute Specialty Discharge - Follow Up or Referrals Follow up with: Charanjit Lester MD [Physician] - 02/08/17 2:15 pm (PLEASE BRING ALL MEDICINES IN THE BOTTLES AND INSURANCE CARDS AND ID ) Discharge Plan - Discharge Data Disposition: Disch To Home/Self Care Condition at Discharge: Stable Discharge Diet: advance to your usual diet Activity: resume usual activities as tolerated - Discharge Medications New oxyCODONE/ACETAMINOPHEN 5-325 [Percocet 5-325] 2 tablet PO Q6H PRN #10 tablet PRN Reason: Pain Moderate (4-7) Continue HydrOXYzine PAMOATE CAP [Vistaril Cap] 50 mg PO TID ARIPiprazole [Abilify] 10 mg PO DAILY Gabapentin 600 mg PO TID traZODone [Desyrel] 300 mg PO BEDTIME - Follow Up or Referral Follow Up: Charanjit Lester MD [Physician] - 02/08/17 2:15 pm (PLEASE BRING ALL MEDICINES IN THE BOTTLES AND INSURANCE CARDS AND ID ) - Forms/Instructions Exam - Constitutional Vitals: Period Temp Pulse Resp BP Sys/Collins Pulse Ox Last 24 Hr 97.2 F-98.2 F 68-84 16- 115-143/60-89 93-96 Discharge Results Procedures and tests throughout hospitalization: Pending Orders 01/04/17 11:42 Blood Culture Stat 01/05/17 09:32 Hepatitis C RNA Detect/Quant Routine Labs on day of discharge: Preliminary micro results at discharge 01/04/17 11:42 Blood Culture - Preliminary Blood No growth at 3 days 01/04/17 11:42 Blood Culture - Preliminary Blood No growth at 3 days DS: Provider Date of admission: 01/04/17 12:03 Primary care physician: . No PCP Attending physician on admission: Mariah Smith MD Consults: 01/04/17 13:37 Consult to Dietitian [CONS] Routine Reason for Dietitian: Other 01/05/17 07:47 Consult to Physician [CONS] Routine Comment: topher, rafael Consulting Provider: Idris Covington Person Notified: OSCAR Date Notified: 01/05/17 Time Notified: 07:53 01/05/17 08:57 Consult to Physician [CONS] Routine Comment: hepatitis c screen positive Consulting Provider: Charanjit Lester 01/06/17 18:14 Consult to Dietitian [CONS] Routine Reason for Dietitian: Diet Instruction Consult Comment: HE DID NOT RECIEVE HIS DINNER TRAY HES A REGULAR DIET Discharging clinician: Sammy Mehta MD
[2017-01-09] MEDS: ARIPiprazole 10 MG TABLET PO SCH (10:12)
[2017-01-09] MEDS: HydrOXYzine PAMOATE 50 MG CAPSULE PO SCH (10:12)
[2017-01-09] MEDS: PANTOPRAZOLE 40 MG VIAL IV SCH (10:14)
[2017-01-09] MEDS: ONDANSETRON 4 MG/2 ML VIAL IV PRN (10:17)
== END 2017-01-09 11:50 | disposition home or self-care (01) | DRG 282 ==
LOC: N.ED 08:08 → SUATTDRO 12:03 → N.EDINP 12:03 → N.2E 13:00
PROVIDERS: ADMIT Internal Medicine; ATTEND Internal Medicine

== ENCOUNTER 2022-06-03 05:04 | Inpatient (IN) ==
[2022-06-03] MEDS ORDERED: ONDANSETRON 4 MG/2 ML VIAL IV STA (05:32)
[2022-06-03] MEDS ORDERED: LORazepam 2 MG/1 ML VIAL IV STA (05:46)
[2022-06-03] MEDS ORDERED: LORazepam 2 MG/1 ML VIAL ONE (05:47)
[2022-06-03 06:01] LABS: Basophils % 0.3 % (0.0-0.8); Eosinophils % 0.2 % (0.00-10.9); Hematocrit 35.1 VOL% (42.0-52.0); Immature Granulocytes Absolute 0.09 #; Lymphocytes % 10.6 % (21.2-54.2); Mean Corpuscular HGB Conc 34.2 GM/DL (32-36); Mean Corpuscular Volume 98.6 FL (87-102); Mean Platelet Volume 11.7 FL (9.6-12.0); Monocytes # 1.4 10*3/uL (0.11-0.8); Monocytes % 14.4 % (1.7-12.7); Neutrophils % 73.5 % (38.7-73.9); Platelet Count 90 T/CUMM (130-400); Red Blood Count 3.56 MC/CUMM (3.8-5.5); Red Cell Distribution Width 14.3 % (9.3-17.3); White Blood Count 9.5 T/CUMM (4-12)
[2022-06-03 06:06] LABS: Bilirubin,Urine Moderate mg/dL (Negative); Blood, Urine Negative (Negative); Glucose,Urine (UA) Negative (Negative); Ketones,Urine Trace mg/dL (Negative); Mucus,Urine Many /LPF (Occasional); Nitrite,Urine Positive (Negative); Protein,Urine 30 mg/dL (Negative); RBC,Urine 4 /HPF (0-4); Urine Appearance Clear (Clear); Urine Color Amber (Yellow); Urine Specific Gravity > 1.030 (1.001-1.035); Urine pH 5.5 (4.5-8.0)
[2022-06-03] MEDS ORDERED: ROCURONIUM 100 MG/10 ML VIAL IV ONE (06:20)
[2022-06-03] MEDS ORDERED: ETOMIDATE 20 MG/10 ML VIAL IV ONE (06:20)
[2022-06-03] MEDS ORDERED: ETOMIDATE 20 MG/10 ML VIAL IV STA (06:25)
[2022-06-03] MEDS ORDERED: ROCURONIUM 100 MG/10 ML VIAL IV STA (06:25)
[2022-06-03 06:26] LABS: Alanine Aminotransferase 52 U/L (16-61); Albumin 2.9 G/DL (3.4-5.0); Alkaline Phosphatase 96 U/L (45-117); Amylase 47 U/L (25-115); Aspartate Amino Transferase 104 U/L (0-37); Blood Urea Nitrogen 21 MG/DL (7-18); Calcium 8.6 MG/DL (8.5-10.1); Carbon Dioxide 23 MMOL/L (21-32); Chloride 104 MMOL/L (98-107); Glucose 102 MG/DL (74-106); Osmolality,Calculated 275.8 MOS/KG (273-304); Potassium 4.7 MMOL/L (3.5-5.1); Sodium 137 MMOL/L (136-145); Total Protein 5.4 G/DL (6.4-8.2)
[2022-06-03 06:30] LABS: Lactic Acid 4.6 MMOL/L (0.4-2.0)
[2022-06-03 06:33] LABS: Barbiturates Screen,Urine Negative (Negative); Benzodiazepines Screen,Urine Positive (Negative); Cannabinoid Screen,Urine Positive (Negative); Opiate Screen,Urine Negative (Negative); Phencyclidine Screen,Urine Negative (Negative)
[2022-06-03] MEDS ORDERED: SODIUM CHLORIDE 0.9% 3,200 ML IV ONE (06:35)
[2022-06-03] MEDS ORDERED: LACTULOSE 20 GM/30 ML UDCUP RECTAL STA (06:41)
[2022-06-03] MEDS ORDERED: PIPERACILLIN/TAZOBACTAM 3,375 MG VIAL IV ONE (06:41)
[2022-06-03] MEDS ORDERED: SODIUM CHLORIDE 0.9% 100 ML IV ONE (06:42)
[2022-06-03 06:47] LABS: Platelet Estimate Decreased
[2022-06-03] MEDS ORDERED: PIPERACILLIN/TAZOBACTAM 3,375 MG in SODIUM CHLORIDE 0.9% 100 ML IV SCH (07:00)
[2022-06-03 07:22] LABS: INR 1.1; PT Patient Result 12.5 SECS (10.1-12.1); Partial Thromboplastin Time 35.9 SECS (23.7-32.9)
[2022-06-03] MEDS ORDERED: ALBUTEROL 2.5 MG/3 ML NEB RESP TX PRN (07:47)
[2022-06-03] MEDS ORDERED: ONDANSETRON 4 MG/2 ML VIAL IV PRN (07:48)
[2022-06-03] MEDS ORDERED: PANTOPRAZOLE 40 MG VIAL IV SCH (08:00)
[2022-06-03] MEDS ORDERED: LACTULOSE 20 GM/30 ML UDCUP PO ONE (09:14)
[2022-06-03] MEDS: FUROSEMIDE 40 MG/4 ML VIAL IV SCH (09:22)
[2022-06-03] MEDS: MEROPENEM 500 MG in SODIUM CHLORIDE 0.9% 100 ML IV SCH ×3 (09:23→20:28)
[2022-06-03] MEDS: ENOXAPARIN 40 MG/0.4 ML SYRINGE SUBCUT SCH (09:23)
[2022-06-03] MEDS: lisinopriL 5 MG TABLET PO SCH (09:23)
[2022-06-03] MEDS: PROPRANOLOL 40 MG TABLET PO SCH ×2 (09:23→20:28)
[2022-06-03] MEDS: fentaNYL 25 MCG/HR PATCH TRANSDERM SCH (15:29)
[2022-06-03] MEDS: ZINC OXIDE PASTE 113 GM TUBE TOP PRN (17:17)
[2022-06-03] MEDS: HYDROCORTISONE 1% CREAM 28 GM TUBE TOP PRN (17:17)
[2022-06-03] MEDS: LACTATED RINGERS 1,000 ML IV SCH (17:18)
[2022-06-03] MEDS: LACTULOSE 20 GM/30 ML UDCUP PO SCH ×2 (17:18→23:09)
[2022-06-03] MEDS: PANTOPRAZOLE 40 MG VIAL IV SCH (20:29)
[2022-06-03] MEDS: HALOPERIDOL 5 MG TABLET PO SCH (20:33)
[2022-06-04] MEDS ORDERED: MIDAZOLAM 2 MG/2 ML VIAL IV ONE (00:45)
[2022-06-04] MEDS: LACTATED RINGERS 1,000 ML IV SCH ×4 (00:59→22:40)
[2022-06-04] MEDS ORDERED: LACTATED RINGERS 250 ML IV ONE (01:30)
[2022-06-04] MEDS: MEROPENEM 500 MG in SODIUM CHLORIDE 0.9% 100 ML IV SCH ×4 (02:31→21:29)
[2022-06-04 03:38] LABS: Basophils % 0.4 % (0.0-0.8); Eosinophils # 0.1 10*3/uL (0.0-0.87); Eosinophils % 1.5 % (0.00-10.9); Hematocrit 31.7 VOL% (42.0-52.0); Hemoglobin 10.4 GM/DL (14.0-18.0); Immature Granulocytes % 0.5 %; Immature Granulocytes Absolute 0.04 #; Lymphocytes # 1.4 10*3/uL (1.4-4.0); Lymphocytes % 19.6 % (21.2-54.2); Mean Corpuscular HGB Conc 32.8 GM/DL (32-36); Mean Corpuscular Volume 99.7 FL (87-102); Mean Platelet Volume 11.5 FL (9.6-12.0); Monocytes # 1.3 10*3/uL (0.11-0.8); Monocytes % 17.6 % (1.7-12.7); Neutrophils % 60.4 % (38.7-73.9); Platelet Count 76 T/CUMM (130-400); Red Blood Count 3.18 MC/CUMM (3.8-5.5); White Blood Count 7.3 T/CUMM (4-12)
[2022-06-04 03:47] LABS: INR 1.2; PT Patient Result 13.4 SECS (10.1-12.1)
[2022-06-04 03:49] LABS: Arterial Base Excess iSTAT 0 MMOL/L (-2.5-2.5); Arterial O2 Saturation iSTAT 97 % (95-100); Arterial PCO2 iSTAT 42 MM HG (35-48); Arterial PO2 iSTAT 95 MM HG (80-95); Arterial Total CO2 iSTAT 26 MMO/L (23-27); Arterial pH iSTAT 7.389 (7.35-7.45)
[2022-06-04] MEDS: MIDAZOLAM DRIP 100 MG/100 ML PREMIX IV PRN (03:52)
[2022-06-04 03:53] LABS: Albumin 2.1 G/DL (3.4-5.0); Calcium 7.4 MG/DL (8.5-10.1); Osmolality,Calculated 280.4 MOS/KG (273-304); Total Protein 4.7 G/DL (6.4-8.2)
[2022-06-04 03:58] LABS: Eosinophils 4 % (0-10); Lymphocytes 19 % (20-55); Platelet Estimate Decreased; Total Cells Counted 100
[2022-06-04 04:01] LABS: Risk Ratio 3.34; Thyroid Stimulating Hormone 4.23 uIU/ml (0.358-3.74); VLDL Cholesterol 20.2 MG/DL
[2022-06-04] MEDS: LACTULOSE 20 GM/30 ML UDCUP PO SCH ×3 (05:06→17:59)
[2022-06-04] MEDS: ENOXAPARIN 40 MG/0.4 ML SYRINGE SUBCUT SCH (08:47)
[2022-06-04] MEDS: lisinopriL 5 MG TABLET PO SCH (08:52)
[2022-06-04] MEDS: HALOPERIDOL 5 MG TABLET PO SCH ×2 (08:53→21:30)
[2022-06-04] MEDS: PROPRANOLOL 20 MG TABLET PO SCH ×2 (08:55→21:51)
[2022-06-04] MEDS: FUROSEMIDE 40 MG/4 ML VIAL IV SCH (08:57)
[2022-06-04] MEDS: PANTOPRAZOLE 40 MG VIAL IV SCH ×2 (09:00→21:30)
[2022-06-04] MEDS ORDERED: ALBUMIN 25% 25 GM/100 ML VIAL IV ONE (10:54)
[2022-06-04 12:04] LABS: Neutrophils,Peritoneal Fluid 14 %
[2022-06-04 12:06] LABS: RBC,Peritoneal Fluid 290 T/CUMM
[2022-06-04] MEDS: NOREPINEPHRINE DRIP 8 MG/250 ML PREMIX IV PRN (21:15)
[2022-06-05] MEDS: LACTULOSE 20 GM/30 ML UDCUP PO SCH ×4 (00:29→18:13)
[2022-06-05] MEDS: LACTATED RINGERS 1,000 ML IV SCH ×3 (02:34→21:43)
[2022-06-05] MEDS: MEROPENEM 500 MG in SODIUM CHLORIDE 0.9% 100 ML IV SCH ×4 (02:50→21:15)
[2022-06-05 04:08] LABS: Basophils % 0.5 % (0.0-0.8); Eosinophils # 0.2 10*3/uL (0.0-0.87); Hematocrit 30.7 VOL% (42.0-52.0); Hemoglobin 10.3 GM/DL (14.0-18.0); Immature Granulocytes % 0.5 %; Immature Granulocytes Absolute 0.04 #; Lymphocytes # 1.2 10*3/uL (1.4-4.0); Lymphocytes % 16.2 % (21.2-54.2); Mean Corpuscular HGB Conc 33.6 GM/DL (32-36); Mean Corpuscular Volume 99.4 FL (87-102); Mean Platelet Volume 11.4 FL (9.6-12.0); Monocytes # 1.3 10*3/uL (0.11-0.8); Neutrophils % 62.8 % (38.7-73.9); Platelet Count 79 T/CUMM (130-400); Red Blood Count 3.09 MC/CUMM (3.8-5.5); Red Cell Distribution Width 14.8 % (9.3-17.3); White Blood Count 7.6 T/CUMM (4-12)
[2022-06-05 04:10] LABS: Arterial Base Excess iSTAT 0 MMOL/L (-2.5-2.5); Arterial Bicarbonate iSTAT 24.8 MMOL/L (20-26); Arterial O2 Saturation iSTAT 98 % (95-100); Arterial PCO2 iSTAT 38 MM HG (35-48); Arterial PO2 iSTAT 108 MM HG (80-95); Arterial Total CO2 iSTAT 26 MMO/L (23-27)
[2022-06-05 04:24] LABS: Albumin 2.2 G/DL (3.4-5.0); Bilirubin,Total 3.1 MG/DL (0.20-1.00); Calcium 7.6 MG/DL (8.5-10.1); Osmolality,Calculated 278.7 MOS/KG (273-304); Phosphorous 3.2 MG/DL (2.5-4.9); Potassium 3.7 MMOL/L (3.5-5.1); Total Protein 4.6 G/DL (6.4-8.2)
[2022-06-05 04:26] LABS: Eosinophils 2 % (0-10); Hypochromia Slight; Lymphocytes 18 % (20-55); Microcytosis Slight; Platelet Estimate Decreased; Total Cells Counted 100
[2022-06-05] MEDS: MIDAZOLAM DRIP 100 MG/100 ML PREMIX IV PRN (05:45)
[2022-06-05] MEDS: NOREPINEPHRINE DRIP 8 MG/250 ML PREMIX IV PRN ×3 (06:16→21:35)
[2022-06-05] MEDS ORDERED: HALOPERIDOL DECANOATE 50 MG/1 ML VIAL IM SCH (08:30)
[2022-06-05] MEDS: HALOPERIDOL 5 MG TABLET PO SCH ×2 (09:00→21:17)
[2022-06-05] MEDS: PROPRANOLOL 10 MG TABLET PO SCH ×2 (09:01→21:17)
[2022-06-05] MEDS: PANTOPRAZOLE 40 MG VIAL IV SCH ×2 (09:03→21:17)
[2022-06-05] MEDS ORDERED: ALBUMIN 25% 25 GM/100 ML VIAL IV ONE (10:30)
[2022-06-06] MEDS: LACTULOSE 20 GM/30 ML UDCUP PO SCH ×7 (00:12→21:31)
[2022-06-06] MEDS: MEROPENEM 500 MG in SODIUM CHLORIDE 0.9% 100 ML IV SCH ×4 (03:05→21:31)
[2022-06-06 03:32] LABS: Arterial Base Excess iSTAT 0 MMOL/L (-2.5-2.5); Arterial Bicarbonate iSTAT 24.9 MMOL/L (20-26); Arterial O2 Saturation iSTAT 96 % (95-100); Arterial PCO2 iSTAT 38 MM HG (35-48); Arterial PO2 iSTAT 79 MM HG (80-95); Arterial Total CO2 iSTAT 26 MMO/L (23-27)
[2022-06-06 03:34] LABS: Basophils % 0.4 % (0.0-0.8); Eosinophils # 0.3 10*3/uL (0.0-0.87); Eosinophils % 3.4 % (0.00-10.9); Hematocrit 31.7 VOL% (42.0-52.0); Hemoglobin 10.7 GM/DL (14.0-18.0); Immature Granulocytes % 0.8 %; Immature Granulocytes Absolute 0.06 #; Lymphocytes # 0.9 10*3/uL (1.4-4.0); Lymphocytes % 11.9 % (21.2-54.2); Mean Corpuscular HGB Conc 33.8 GM/DL (32-36); Mean Corpuscular Volume 98.1 FL (87-102); Mean Platelet Volume 11.7 FL (9.6-12.0); Monocytes % 12.1 % (1.7-12.7); Neutrophils % 71.4 % (38.7-73.9); Platelet Count 73 T/CUMM (130-400); Red Blood Count 3.23 MC/CUMM (3.8-5.5); Red Cell Distribution Width 14.6 % (9.3-17.3); White Blood Count 7.9 T/CUMM (4-12)
[2022-06-06 03:47] LABS: Albumin 2.2 G/DL (3.4-5.0); Bilirubin,Total 2.8 MG/DL (0.20-1.00); Calcium 7.5 MG/DL (8.5-10.1); Osmolality,Calculated 278.4 MOS/KG (273-304); Phosphorous 2.9 MG/DL (2.5-4.9); Potassium 4.2 MMOL/L (3.5-5.1); Total Protein 4.6 G/DL (6.4-8.2)
[2022-06-06 03:57] LABS: Platelet Estimate Decreased
[2022-06-06] MEDS: fentaNYL 25 MCG/HR PATCH TRANSDERM SCH (09:39)
[2022-06-06] MEDS: PANTOPRAZOLE 40 MG VIAL IV SCH ×2 (09:40→21:30)
[2022-06-06] MEDS: HALOPERIDOL 5 MG TABLET PO SCH ×2 (09:58→20:44)
[2022-06-06] MEDS: FUROSEMIDE 40 MG/4 ML VIAL IV SCH (09:58)
[2022-06-06] MEDS: PROPRANOLOL 10 MG TABLET PO SCH ×2 (09:58→20:44)
[2022-06-06] MEDS ORDERED: LACTULOSE 320 GM/480 ML BOTTLE RECTAL ONE (11:30)
[2022-06-06] MEDS: MIDAZOLAM DRIP 100 MG/100 ML PREMIX IV PRN (12:00)
[2022-06-06] MEDS: NOREPINEPHRINE DRIP 8 MG/250 ML PREMIX IV PRN ×3 (12:51→21:10)
[2022-06-07] MEDS: MEROPENEM 500 MG in SODIUM CHLORIDE 0.9% 100 ML IV SCH ×4 (03:00→20:36)
[2022-06-07] MEDS: LACTULOSE 20 GM/30 ML UDCUP PO SCH ×3 (03:00→20:38)
[2022-06-07] MEDS: NOREPINEPHRINE DRIP 8 MG/250 ML PREMIX IV PRN ×2 (03:23→09:34)
[2022-06-07 03:43] LABS: Arterial Base Excess iSTAT 3 MMOL/L (-2.5-2.5); Arterial Bicarbonate iSTAT 27.3 MMOL/L (20-26); Arterial O2 Saturation iSTAT 98 % (95-100); Arterial PCO2 iSTAT 41 MM HG (35-48); Arterial PO2 iSTAT 102 MM HG (80-95); Arterial Total CO2 iSTAT 28 MMO/L (23-27); Arterial pH iSTAT 7.434 (7.35-7.45)
[2022-06-07 03:49] LABS: Basophils # 0.1 10*3/uL (0.0-0.2); Basophils % 0.6 % (0.0-0.8); Eosinophils # 0.4 10*3/uL (0.0-0.87); Eosinophils % 4.3 % (0.00-10.9); Hematocrit 30.7 VOL% (42.0-52.0); Hemoglobin 10.6 GM/DL (14.0-18.0); Immature Granulocytes % 0.7 %; Immature Granulocytes Absolute 0.06 #; Lymphocytes # 1.5 10*3/uL (1.4-4.0); Lymphocytes % 16.2 % (21.2-54.2); Mean Corpuscular HGB Conc 34.5 GM/DL (32-36); Mean Corpuscular Volume 98.1 FL (87-102); Mean Platelet Volume 11.9 FL (9.6-12.0); Monocytes # 1.1 10*3/uL (0.11-0.8); Monocytes % 12.5 % (1.7-12.7); Neutrophils % 65.7 % (38.7-73.9); Platelet Count 76 T/CUMM (130-400); Red Blood Count 3.13 MC/CUMM (3.8-5.5); Red Cell Distribution Width 14.7 % (9.3-17.3)
[2022-06-07 04:09] LABS: Platelet Estimate Decreased
[2022-06-07 04:10] LABS: Bilirubin,Total 2.8 MG/DL (0.20-1.00); Calcium 7.4 MG/DL (8.5-10.1); Osmolality,Calculated 284.3 MOS/KG (273-304); Total Protein 4.4 G/DL (6.4-8.2)
[2022-06-07] MEDS: MIDAZOLAM DRIP 100 MG/100 ML PREMIX IV PRN (07:02)
[2022-06-07] MEDS: PROPRANOLOL 10 MG TABLET PO SCH ×2 (09:28→20:39)
[2022-06-07] MEDS: HALOPERIDOL 5 MG TABLET PO SCH ×2 (09:28→20:38)
[2022-06-07] MEDS: FUROSEMIDE 40 MG/4 ML VIAL IV SCH (09:28)
[2022-06-07] MEDS: PANTOPRAZOLE 40 MG VIAL IV SCH ×2 (09:30→20:36)
[2022-06-08] MEDS: MEROPENEM 500 MG in SODIUM CHLORIDE 0.9% 100 ML IV SCH ×3 (03:25→20:56)
[2022-06-08] MEDS: MIDAZOLAM DRIP 100 MG/100 ML PREMIX IV PRN (03:30)
[2022-06-08 03:35] LABS: Arterial Base Excess iSTAT 4 MMOL/L (-2.5-2.5); Arterial Bicarbonate iSTAT 27.9 MMOL/L (20-26); Arterial O2 Saturation iSTAT 97 % (95-100); Arterial PCO2 iSTAT 40 MM HG (35-48); Arterial PO2 iSTAT 88 MM HG (80-95); Arterial Total CO2 iSTAT 29 MMO/L (23-27); Arterial pH iSTAT 7.455 (7.35-7.45)
[2022-06-08 04:06] LABS: Albumin 2.1 G/DL (3.4-5.0); Bilirubin,Total 2.1 MG/DL (0.20-1.00); Calcium 7.7 MG/DL (8.5-10.1); Osmolality,Calculated 286.3 MOS/KG (273-304); Potassium 4.5 MMOL/L (3.5-5.1); Total Protein 4.5 G/DL (6.4-8.2)
[2022-06-08 05:24] LABS: Basophils % 0.5 % (0.0-0.8); Eosinophils # 0.3 10*3/uL (0.0-0.87); Eosinophils % 3.4 % (0.00-10.9); Hematocrit 30.5 VOL% (42.0-52.0); Hemoglobin 10.1 GM/DL (14.0-18.0); Immature Granulocytes % 0.9 %; Immature Granulocytes Absolute 0.07 #; Mean Corpuscular HGB Conc 33.1 GM/DL (32-36); Mean Corpuscular Volume 100.7 FL (87-102); Mean Platelet Volume 12.1 FL (9.6-12.0); Monocytes # 1.3 10*3/uL (0.11-0.8); Monocytes % 16.4 % (1.7-12.7); Neutrophils % 65.8 % (38.7-73.9); Platelet Count 75 T/CUMM (130-400); Red Blood Count 3.03 MC/CUMM (3.8-5.5); Red Cell Distribution Width 14.7 % (9.3-17.3)
[2022-06-08 05:42] LABS: Band Neutrophils 1 % (0-10); Eosinophils 3 % (0-10); Hypochromia Slight; Lymphocytes 10 % (20-55); Platelet Estimate Decreased; Total Cells Counted 100
[2022-06-08] MEDS: LACTULOSE 20 GM/30 ML UDCUP PO SCH ×4 (09:08→20:46)
[2022-06-08] MEDS: HALOPERIDOL 5 MG TABLET PO SCH ×2 (09:09→20:46)
[2022-06-08] MEDS: PANTOPRAZOLE 40 MG VIAL IV SCH ×2 (09:09→20:46)
[2022-06-08] MEDS: PROPRANOLOL 10 MG TABLET PO SCH ×2 (09:09→20:46)
[2022-06-08] MEDS: FUROSEMIDE 40 MG/4 ML VIAL IV SCH (09:10)
[2022-06-08] MEDS: ZINC OXIDE PASTE 113 GM TUBE TOP PRN (09:10)
[2022-06-08] MEDS: NOREPINEPHRINE DRIP 8 MG/250 ML PREMIX IV PRN ×3 (10:00→23:10)
[2022-06-08] MEDS: fentaNYL INJ 1,250 MCG in SODIUM CHLORIDE 0.9% 225 ML IV PRN (14:27)
[2022-06-08] MEDS ORDERED: ALBUMIN 5% 12.5 GM/250 ML VIAL IV ONE (14:59)
[2022-06-09] MEDS: fentaNYL INJ 1,250 MCG in SODIUM CHLORIDE 0.9% 225 ML IV PRN (01:44)
[2022-06-09] MEDS: MEROPENEM 500 MG in SODIUM CHLORIDE 0.9% 100 ML IV SCH ×4 (03:04→20:31)
[2022-06-09 04:00] LABS: Albumin 2.2 G/DL (3.4-5.0); Bilirubin,Total 2.5 MG/DL (0.20-1.00); Calcium 7.5 MG/DL (8.5-10.1); Osmolality,Calculated 289.3 MOS/KG (273-304); Potassium 4.3 MMOL/L (3.5-5.1); Total Protein 4.7 G/DL (6.4-8.2)
[2022-06-09] MEDS: ZINC OXIDE PASTE 113 GM TUBE TOP PRN ×2 (04:30→09:00)
[2022-06-09] MEDS: NOREPINEPHRINE DRIP 8 MG/250 ML PREMIX IV PRN ×5 (04:30→22:16)
[2022-06-09 06:44] LABS: Basophils # 0.1 10*3/uL (0.0-0.2); Basophils % 0.8 % (0.0-0.8); Eosinophils # 0.5 10*3/uL (0.0-0.87); Hematocrit 30.6 VOL% (42.0-52.0); Immature Granulocytes Absolute 0.09 #; Lymphocytes # 1.3 10*3/uL (1.4-4.0); Lymphocytes % 13.8 % (21.2-54.2); Mean Corpuscular HGB Conc 32.7 GM/DL (32-36); Mean Corpuscular Volume 102.7 FL (87-102); Mean Platelet Volume 12.3 FL (9.6-12.0); Monocytes # 1.8 10*3/uL (0.11-0.8); Monocytes % 19.4 % (1.7-12.7); Platelet Count 81 T/CUMM (130-400); Red Blood Count 2.98 MC/CUMM (3.8-5.5); Red Cell Distribution Width 14.7 % (9.3-17.3); White Blood Count 9.2 T/CUMM (4-12)
[2022-06-09 07:07] LABS: Eosinophils 2 % (0-10); Hypochromia Slight; Lymphocytes 13 % (20-55); Platelet Estimate Decreased; Total Cells Counted 100
[2022-06-09] MEDS: PROPRANOLOL 10 MG TABLET PO SCH ×2 (09:18→20:32)
[2022-06-09] MEDS: LACTULOSE 20 GM/30 ML UDCUP PO SCH ×4 (09:18→20:30)
[2022-06-09] MEDS: HALOPERIDOL 5 MG TABLET PO SCH ×2 (09:19→20:32)
[2022-06-09] MEDS: PANTOPRAZOLE 40 MG VIAL IV SCH ×2 (09:19→20:30)
[2022-06-09] MEDS: FUROSEMIDE 40 MG/4 ML VIAL IV SCH ×2 (09:20→16:30)
[2022-06-09] MEDS: fentaNYL 25 MCG/HR PATCH TRANSDERM SCH (10:02)
[2022-06-09 11:47] LABS: Arterial Bicarbonate iSTAT 29.6 MMOL/L (20-26); Arterial pH iSTAT 7.432 (7.35-7.45)
[2022-06-09] MEDS ORDERED: ALBUMIN 5% 12.5 GM/250 ML VIAL IV ONE ×2 (12:57→12:58)
[2022-06-09] MEDS: ALBUTEROL/IPRATROPIUM 3 ML NEB RESP TX SCH (19:41)
[2022-06-09] MEDS: RIFAXIMIN 550 MG TABLET PO SCH (20:32)
[2022-06-10] MEDS: ALBUTEROL/IPRATROPIUM 3 ML NEB RESP TX SCH ×5 (00:12→23:44)
[2022-06-10 03:27] LABS: Basophils # 0.1 10*3/uL (0.0-0.2); Basophils % 0.7 % (0.0-0.8); Eosinophils # 0.5 10*3/uL (0.0-0.87); Eosinophils % 5.2 % (0.00-10.9); Hematocrit 28.9 VOL% (42.0-52.0); Hemoglobin 9.7 GM/DL (14.0-18.0); Immature Granulocytes % 1.3 %; Immature Granulocytes Absolute 0.12 #; Lymphocytes # 1.4 10*3/uL (1.4-4.0); Lymphocytes % 15.6 % (21.2-54.2); Mean Corpuscular HGB Conc 33.6 GM/DL (32-36); Mean Platelet Volume 12.5 FL (9.6-12.0); Monocytes % 21.9 % (1.7-12.7); Neutrophils % 55.3 % (38.7-73.9); Platelet Count 74 T/CUMM (130-400); Red Blood Count 2.89 MC/CUMM (3.8-5.5); Red Cell Distribution Width 14.6 % (9.3-17.3); White Blood Count 8.9 T/CUMM (4-12)
[2022-06-10] MEDS: NOREPINEPHRINE DRIP 8 MG/250 ML PREMIX IV PRN ×2 (03:30→07:01)
[2022-06-10] MEDS: MEROPENEM 500 MG in SODIUM CHLORIDE 0.9% 100 ML IV SCH ×4 (04:00→20:40)
[2022-06-10 04:14] LABS: Band Neutrophils 1 % (0-10); Eosinophils 7 % (0-10); Lymphocytes 14 % (20-55); Total Cells Counted 100
[2022-06-10 04:15] LABS: Macrocytosis Slight; Platelet Estimate Decreased
[2022-06-10 04:22] LABS: Albumin 2.2 G/DL (3.4-5.0); Bilirubin,Total 2.3 MG/DL (0.20-1.00); Calcium 7.7 MG/DL (8.5-10.1); Potassium 4.2 MMOL/L (3.5-5.1); Total Protein 4.7 G/DL (6.4-8.2)
[2022-06-10 04:39] LABS: Arterial Bicarbonate iSTAT 29.9 MMOL/L (20-26); Arterial pH iSTAT 7.442 (7.35-7.45)
[2022-06-10] MEDS: HALOPERIDOL 5 MG TABLET PO SCH ×2 (09:15→20:21)
[2022-06-10] MEDS: RIFAXIMIN 550 MG TABLET PO SCH ×2 (09:15→20:21)
[2022-06-10] MEDS: PROPRANOLOL 10 MG TABLET PO SCH ×2 (09:15→20:21)
[2022-06-10] MEDS: LACTULOSE 20 GM/30 ML UDCUP PO SCH ×4 (09:15→20:20)
[2022-06-10] MEDS: FUROSEMIDE 40 MG/4 ML VIAL IV SCH ×2 (09:17→16:34)
[2022-06-10] MEDS: PANTOPRAZOLE 40 MG VIAL IV SCH ×2 (09:19→20:21)
[2022-06-10] MEDS: SPIRONOLACTONE 50 MG TABLET PO SCH ×2 (13:11→20:21)
[2022-06-10] MEDS: traZODone 50 MG TABLET PO SCH (20:20)
[2022-06-11] MEDS: MEROPENEM 500 MG in SODIUM CHLORIDE 0.9% 100 ML IV SCH ×4 (03:08→21:28)
[2022-06-11 03:55] LABS: Arterial Bicarbonate iSTAT 30.5 MMOL/L (20-26); Arterial pH iSTAT 7.43 (7.35-7.45)
[2022-06-11 04:13] LABS: Basophils # 0.1 10*3/uL (0.0-0.2); Basophils % 0.8 % (0.0-0.8); Eosinophils # 0.3 10*3/uL (0.0-0.87); Eosinophils % 4.7 % (0.00-10.9); Hematocrit 28.2 VOL% (42.0-52.0); Hemoglobin 9.2 GM/DL (14.0-18.0); Immature Granulocytes % 0.6 %; Immature Granulocytes Absolute 0.04 #; Lymphocytes # 1.1 10*3/uL (1.4-4.0); Lymphocytes % 17.3 % (21.2-54.2); Mean Corpuscular HGB Conc 32.6 GM/DL (32-36); Mean Corpuscular Volume 101.8 FL (87-102); Mean Platelet Volume 12.7 FL (9.6-12.0); Monocytes # 1.1 10*3/uL (0.11-0.8); Monocytes % 17.5 % (1.7-12.7); Neutrophils % 59.1 % (38.7-73.9); Platelet Count 70 T/CUMM (130-400); Red Blood Count 2.77 MC/CUMM (3.8-5.5); Red Cell Distribution Width 14.3 % (9.3-17.3); White Blood Count 6.2 T/CUMM (4-12)
[2022-06-11 04:34] LABS: Albumin 2.2 G/DL (3.4-5.0); Bilirubin,Total 2.1 MG/DL (0.20-1.00); Calcium 7.6 MG/DL (8.5-10.1); Potassium 3.9 MMOL/L (3.5-5.1); Total Protein 4.7 G/DL (6.4-8.2)
[2022-06-11 04:38] LABS: Osmolality,Calculated 292.8 MOS/KG (273-304)
[2022-06-11 04:51] LABS: Band Neutrophils 1 % (0-10); Eosinophils 5 % (0-10); Lymphocytes 17 % (20-55); Nucleated Red Blood Cells 1 /100 WBC (0-5); Total Cells Counted 100
[2022-06-11 04:52] LABS: Anisocytosis 1+; Platelet Estimate Decreased; Polychromasia Slight
[2022-06-11] MEDS: ALBUTEROL/IPRATROPIUM 3 ML NEB RESP TX SCH ×3 (06:58→19:39)
[2022-06-11] MEDS: LACTULOSE 20 GM/30 ML UDCUP PO SCH ×4 (08:21→21:07)
[2022-06-11] MEDS: FUROSEMIDE 40 MG/4 ML VIAL IV SCH ×2 (08:21→17:17)
[2022-06-11] MEDS: HALOPERIDOL 5 MG TABLET PO SCH ×2 (08:21→21:07)
[2022-06-11] MEDS: RIFAXIMIN 550 MG TABLET PO SCH ×2 (08:21→21:07)
[2022-06-11] MEDS: PROPRANOLOL 10 MG TABLET PO SCH ×2 (08:22→20:00)
[2022-06-11] MEDS: PANTOPRAZOLE 40 MG VIAL IV SCH ×2 (08:24→21:07)
[2022-06-11] MEDS: SPIRONOLACTONE 50 MG TABLET PO SCH ×2 (08:27→21:07)
[2022-06-11] MEDS: MIDAZOLAM DRIP 100 MG/100 ML PREMIX IV PRN (10:10)
[2022-06-11] MEDS: HYDROCORTISONE 1% CREAM 28 GM TUBE TOP PRN (11:17)
[2022-06-11] MEDS ORDERED: ROCURONIUM 100 MG/10 ML VIAL IV ONE (18:01)
[2022-06-11] MEDS ORDERED: MIDAZOLAM 2 MG/2 ML VIAL ONE (18:02)
[2022-06-11] MEDS ORDERED: ETOMIDATE 20 MG/10 ML VIAL IV ONE ×2 (18:06→18:13)
[2022-06-11] MEDS: traZODone 50 MG TABLET PO SCH (21:07)
[2022-06-12] MEDS: ALBUTEROL/IPRATROPIUM 3 ML NEB RESP TX SCH ×4 (00:34→19:05)
[2022-06-12] MEDS: MEROPENEM 500 MG in SODIUM CHLORIDE 0.9% 100 ML IV SCH ×4 (03:03→20:29)
[2022-06-12 04:25] LABS: Arterial Base Excess iSTAT 6 MMOL/L (-2.5-2.5); Arterial Bicarbonate iSTAT 30.7 MMOL/L (20-26); Arterial O2 Saturation iSTAT 93 % (95-100); Arterial PCO2 iSTAT 44 MM HG (35-48); Arterial PO2 iSTAT 64 MM HG (80-95); Arterial Total CO2 iSTAT 32 MMO/L (23-27); Arterial pH iSTAT 7.453 (7.35-7.45)
[2022-06-12 04:44] LABS: Basophils # 0.1 10*3/uL (0.0-0.2); Eosinophils # 0.3 10*3/uL (0.0-0.87); Eosinophils % 5.3 % (0.00-10.9); Hematocrit 28.1 VOL% (42.0-52.0); Hemoglobin 8.9 GM/DL (14.0-18.0); Immature Granulocytes % 1.4 %; Immature Granulocytes Absolute 0.09 #; Lymphocytes # 1.4 10*3/uL (1.4-4.0); Lymphocytes % 22.8 % (21.2-54.2); Mean Corpuscular HGB Conc 31.7 GM/DL (32-36); Mean Corpuscular Volume 103.7 FL (87-102); Mean Platelet Volume 12.7 FL (9.6-12.0); Monocytes % 16.2 % (1.7-12.7); Neutrophils % 53.3 % (38.7-73.9); Platelet Count 69 T/CUMM (130-400); Red Blood Count 2.71 MC/CUMM (3.8-5.5); Red Cell Distribution Width 14.6 % (9.3-17.3); White Blood Count 6.2 T/CUMM (4-12)
[2022-06-12 05:06] LABS: Arterial Base Excess iSTAT 8 MMOL/L (-2.5-2.5); Arterial Bicarbonate iSTAT 32.5 MMOL/L (20-26); Arterial O2 Saturation iSTAT 98 % (95-100); Arterial PCO2 iSTAT 47 MM HG (35-48); Arterial PO2 iSTAT 107 MM HG (80-95); Arterial Total CO2 iSTAT 34 MMO/L (23-27); Arterial pH iSTAT 7.445 (7.35-7.45)
[2022-06-12 05:09] LABS: Calcium 7.9 MG/DL (8.5-10.1); Osmolality,Calculated 298.4 MOS/KG (273-304); Potassium 3.9 MMOL/L (3.5-5.1)
[2022-06-12 05:55] LABS: Eosinophils 7 % (0-10); Lymphocytes 28 % (20-55); Platelet Estimate Decreased; Total Cells Counted 100
[2022-06-12 05:56] LABS: Atypical Lymphocytes Moderate
[2022-06-12] MEDS: MIDAZOLAM DRIP 100 MG/100 ML PREMIX IV PRN (06:20)
[2022-06-12] MEDS: SPIRONOLACTONE 50 MG TABLET PO SCH ×2 (09:08→20:53)
[2022-06-12] MEDS: PROPRANOLOL 10 MG TABLET PO SCH ×2 (09:08→20:30)
[2022-06-12] MEDS: RIFAXIMIN 550 MG TABLET PO SCH ×2 (09:08→20:30)
[2022-06-12] MEDS: HALOPERIDOL 5 MG TABLET PO SCH ×2 (09:08→20:30)
[2022-06-12] MEDS: LACTULOSE 20 GM/30 ML UDCUP PO SCH ×4 (09:09→20:30)
[2022-06-12] MEDS: PANTOPRAZOLE 40 MG VIAL IV SCH ×2 (09:09→20:29)
[2022-06-12] MEDS: FUROSEMIDE 40 MG/4 ML VIAL IV SCH ×2 (09:12→16:29)
[2022-06-12] MEDS: traZODone 50 MG TABLET PO SCH (20:30)
[2022-06-12] MEDS: HYDROCORTISONE 1% CREAM 28 GM TUBE TOP PRN (20:53)
[2022-06-12] MEDS: ZINC OXIDE PASTE 113 GM TUBE TOP PRN (20:53)
[2022-06-13] MEDS: ALBUTEROL/IPRATROPIUM 3 ML NEB RESP TX SCH ×4 (01:03→18:57)
[2022-06-13] MEDS: MEROPENEM 500 MG in SODIUM CHLORIDE 0.9% 100 ML IV SCH ×4 (02:32→20:18)
[2022-06-13 03:54] LABS: Basophils # 0.1 10*3/uL (0.0-0.2); Basophils % 0.8 % (0.0-0.8); Eosinophils # 0.3 10*3/uL (0.0-0.87); Eosinophils % 5.1 % (0.00-10.9); Hematocrit 28.5 VOL% (42.0-52.0); Hemoglobin 9.3 GM/DL (14.0-18.0); Immature Granulocytes % 1.4 %; Immature Granulocytes Absolute 0.09 #; Lymphocytes # 1.1 10*3/uL (1.4-4.0); Lymphocytes % 17.5 % (21.2-54.2); Mean Corpuscular HGB Conc 32.6 GM/DL (32-36); Mean Corpuscular Volume 102.5 FL (87-102); Mean Platelet Volume 12.8 FL (9.6-12.0); Monocytes # 0.9 10*3/uL (0.11-0.8); Monocytes % 13.4 % (1.7-12.7); Neutrophils % 61.8 % (38.7-73.9); Platelet Count 73 T/CUMM (130-400); Red Blood Count 2.78 MC/CUMM (3.8-5.5); Red Cell Distribution Width 14.3 % (9.3-17.3); White Blood Count 6.3 T/CUMM (4-12)
[2022-06-13 04:09] LABS: Osmolality,Calculated 306.9 MOS/KG (273-304); Potassium 3.8 MMOL/L (3.5-5.1)
[2022-06-13 05:00] LABS: ABG Base Excess 7.2 MMOL/L (-2.5-2.5); ABG HCO3 31.1 MMOL/L (20-26); ABG Oxygen Saturation 99.4 % (95-100); ABG PCO2 45.7 MM HG (35-48); ABG PH 7.454 (7.35-7.45); ABG TCO2 29.3 MMOL/L (23-27)
[2022-06-13] MEDS: ZINC OXIDE PASTE 113 GM TUBE TOP PRN (05:36)
[2022-06-13] MEDS: HYDROCORTISONE 1% CREAM 28 GM TUBE TOP PRN (05:36)
[2022-06-13] MEDS: SPIRONOLACTONE 50 MG TABLET PO SCH ×2 (08:00→20:17)
[2022-06-13] MEDS: PROPRANOLOL 10 MG TABLET PO SCH ×2 (08:00→20:17)
[2022-06-13] MEDS: RIFAXIMIN 550 MG TABLET PO SCH ×2 (08:00→20:17)
[2022-06-13] MEDS: HALOPERIDOL 5 MG TABLET PO SCH ×2 (08:00→20:17)
[2022-06-13] MEDS: LACTULOSE 20 GM/30 ML UDCUP PO SCH ×2 (08:01→20:30)
[2022-06-13] MEDS: FUROSEMIDE 40 MG/4 ML VIAL IV SCH ×2 (08:02→16:30)
[2022-06-13] MEDS: PANTOPRAZOLE 40 MG VIAL IV SCH ×2 (08:03→20:18)
[2022-06-13] MEDS: traZODone 50 MG TABLET PO SCH (20:30)
[2022-06-14] MEDS: ALBUTEROL/IPRATROPIUM 3 ML NEB RESP TX SCH ×4 (00:30→19:00)
[2022-06-14] MEDS: MEROPENEM 500 MG in SODIUM CHLORIDE 0.9% 100 ML IV SCH ×4 (02:24→21:16)
[2022-06-14 03:36] LABS: Arterial Base Excess iSTAT 5 MMOL/L (-2.5-2.5); Arterial Bicarbonate iSTAT 28.4 MMOL/L (20-26); Arterial O2 Saturation iSTAT 93 % (95-100); Arterial PCO2 iSTAT 36 MM HG (35-48); Arterial PO2 iSTAT 60 MM HG (80-95); Arterial Total CO2 iSTAT 29 MMO/L (23-27); Arterial pH iSTAT 7.505 (7.35-7.45)
[2022-06-14 05:50] LABS: Basophils % 0.6 % (0.0-0.8); Eosinophils # 0.3 10*3/uL (0.0-0.87); Hematocrit 27.9 VOL% (42.0-52.0); Hemoglobin 9.2 GM/DL (14.0-18.0); Immature Granulocytes % 1.1 %; Immature Granulocytes Absolute 0.07 #; Lymphocytes # 1.1 10*3/uL (1.4-4.0); Mean Corpuscular Volume 103.3 FL (87-102); Mean Platelet Volume 13.5 FL (9.6-12.0); Monocytes # 0.9 10*3/uL (0.11-0.8); Monocytes % 13.4 % (1.7-12.7); Neutrophils % 63.9 % (38.7-73.9); Platelet Count 72 T/CUMM (130-400); Red Cell Distribution Width 14.4 % (9.3-17.3); White Blood Count 6.5 T/CUMM (4-12)
[2022-06-14 05:57] LABS: Calcium 7.7 MG/DL (8.5-10.1); Osmolality,Calculated 293.6 MOS/KG (273-304); Potassium 3.4 MMOL/L (3.5-5.1)
[2022-06-14 06:01] LABS: Albumin 2.1 G/DL (3.4-5.0); Bilirubin,Total 2.6 MG/DL (0.20-1.00); Calcium 7.9 MG/DL (8.5-10.1); Osmolality,Calculated 294.4 MOS/KG (273-304); Potassium 3.3 MMOL/L (3.5-5.1); Total Protein 4.5 G/DL (6.4-8.2)
[2022-06-14 06:14] LABS: Platelet Estimate Decreased
[2022-06-14] MEDS ORDERED: POTASSIUM CHLORIDE 20 MEQ TABLET PO ONE (08:51)
[2022-06-14] MEDS: FUROSEMIDE 40 MG/4 ML VIAL IV SCH (09:19)
[2022-06-14] MEDS: RIFAXIMIN 550 MG TABLET PO SCH ×2 (09:25→21:15)
[2022-06-14] MEDS: SPIRONOLACTONE 50 MG TABLET PO SCH ×2 (09:25→21:15)
[2022-06-14] MEDS: LACTULOSE 20 GM/30 ML UDCUP PO SCH ×2 (09:26→21:15)
[2022-06-14] MEDS: PANTOPRAZOLE 40 MG VIAL IV SCH ×2 (09:26→21:16)
[2022-06-14] MEDS: HALOPERIDOL 5 MG TABLET PO SCH ×2 (09:26→21:15)
[2022-06-14] MEDS: PROPRANOLOL 10 MG TABLET PO SCH ×2 (09:26→21:15)
[2022-06-14] MEDS: traZODone 50 MG TABLET PO SCH (21:15)
[2022-06-15] MEDS: ALBUTEROL/IPRATROPIUM 3 ML NEB RESP TX SCH ×4 (01:14→19:55)
[2022-06-15] MEDS: MEROPENEM 500 MG in SODIUM CHLORIDE 0.9% 100 ML IV SCH ×2 (02:52→09:06)
[2022-06-15 05:02] LABS: Basophils % 0.8 % (0.0-0.8); Eosinophils # 0.3 10*3/uL (0.0-0.87); Eosinophils % 4.8 % (0.00-10.9); Hematocrit 27.2 VOL% (42.0-52.0); Hemoglobin 8.9 GM/DL (14.0-18.0); Immature Granulocytes % 0.8 %; Immature Granulocytes Absolute 0.04 #; Lymphocytes # 1.2 10*3/uL (1.4-4.0); Lymphocytes % 23.1 % (21.2-54.2); Mean Corpuscular HGB Conc 32.7 GM/DL (32-36); Mean Corpuscular Volume 103.8 FL (87-102); Mean Platelet Volume 13.1 FL (9.6-12.0); Monocytes # 0.6 10*3/uL (0.11-0.8); Monocytes % 11.8 % (1.7-12.7); Neutrophils % 58.7 % (38.7-73.9); Platelet Count 65 T/CUMM (130-400); Red Blood Count 2.62 MC/CUMM (3.8-5.5); Red Cell Distribution Width 14.6 % (9.3-17.3); White Blood Count 5.2 T/CUMM (4-12)
[2022-06-15 05:21] LABS: Platelet Estimate Decreased
[2022-06-15 05:30] LABS: Bilirubin,Total 2.3 MG/DL (0.20-1.00); Calcium 7.9 MG/DL (8.5-10.1); Osmolality,Calculated 284.1 MOS/KG (273-304); Potassium 3.4 MMOL/L (3.5-5.1); Total Protein 4.4 G/DL (6.4-8.2)
[2022-06-15] MEDS: RIFAXIMIN 550 MG TABLET PO SCH ×2 (09:04→21:36)
[2022-06-15] MEDS: LACTULOSE 20 GM/30 ML UDCUP PO SCH ×2 (09:04→21:36)
[2022-06-15] MEDS: SPIRONOLACTONE 50 MG TABLET PO SCH ×2 (09:04→21:36)
[2022-06-15] MEDS: PROPRANOLOL 10 MG TABLET PO SCH ×2 (09:04→21:36)
[2022-06-15] MEDS: HALOPERIDOL 5 MG TABLET PO SCH ×2 (09:04→21:36)
[2022-06-15] MEDS: PANTOPRAZOLE 40 MG VIAL IV SCH ×2 (09:05→21:39)
[2022-06-15] MEDS: LEVOFLOXACIN 500 MG TABLET PO SCH (14:54)
[2022-06-15] MEDS: traZODone 50 MG TABLET PO SCH (21:36)
[2022-06-16] MEDS: ALBUTEROL/IPRATROPIUM 3 ML NEB RESP TX SCH ×4 (02:16→19:20)
[2022-06-16 05:53] LABS: Basophils % 0.4 % (0.0-0.8); Eosinophils # 0.2 10*3/uL (0.0-0.87); Eosinophils % 3.9 % (0.00-10.9); Hematocrit 28.4 VOL% (42.0-52.0); Hemoglobin 9.4 GM/DL (14.0-18.0); Immature Granulocytes Absolute 0.05 #; Lymphocytes # 1.2 10*3/uL (1.4-4.0); Lymphocytes % 22.4 % (21.2-54.2); Mean Corpuscular HGB Conc 33.1 GM/DL (32-36); Mean Corpuscular Volume 103.6 FL (87-102); Mean Platelet Volume 13.2 FL (9.6-12.0); Monocytes # 0.6 10*3/uL (0.11-0.8); Monocytes % 10.7 % (1.7-12.7); Neutrophils % 61.6 % (38.7-73.9); Platelet Count 74 T/CUMM (130-400); Red Blood Count 2.74 MC/CUMM (3.8-5.5); Red Cell Distribution Width 14.6 % (9.3-17.3); White Blood Count 5.1 T/CUMM (4-12)
[2022-06-16 06:10] LABS: Bilirubin,Total 2.4 MG/DL (0.20-1.00); Calcium 7.8 MG/DL (8.5-10.1); Osmolality,Calculated 278.4 MOS/KG (273-304); Potassium 3.6 MMOL/L (3.5-5.1); Total Protein 4.6 G/DL (6.4-8.2)
[2022-06-16 06:22] LABS: Platelet Estimate Decreased
[2022-06-16] MEDS: PROPRANOLOL 10 MG TABLET PO SCH ×2 (08:12→20:40)
[2022-06-16] MEDS: SPIRONOLACTONE 50 MG TABLET PO SCH ×2 (08:13→20:39)
[2022-06-16] MEDS: HALOPERIDOL 5 MG TABLET PO SCH ×2 (09:09→20:35)
[2022-06-16] MEDS: FUROSEMIDE 40 MG TABLET PO SCH (09:09)
[2022-06-16] MEDS: RIFAXIMIN 550 MG TABLET PO SCH ×2 (09:09→20:35)
[2022-06-16] MEDS: LEVOFLOXACIN 500 MG TABLET PO SCH (09:09)
[2022-06-16] MEDS: LACTULOSE 20 GM/30 ML UDCUP PO SCH ×2 (09:10→20:35)
[2022-06-16] MEDS: PANTOPRAZOLE 40 MG VIAL IV SCH ×2 (09:10→20:36)
[2022-06-16] MEDS ORDERED: ALBUMIN 25% 12.5 GM/50 ML VIAL IV ONE (11:45)
[2022-06-16] MEDS: traZODone 50 MG TABLET PO SCH (20:35)
[2022-06-16] MEDS ORDERED: GABAPENTIN 400 MG CAPSULE PO ONE (21:00)
[2022-06-17] MEDS: ALBUTEROL/IPRATROPIUM 3 ML NEB RESP TX SCH ×3 (00:40→13:40)
[2022-06-17 05:39] LABS: Basophils % 0.7 % (0.0-0.8); Eosinophils # 0.1 10*3/uL (0.0-0.87); Eosinophils % 1.6 % (0.00-10.9); Hematocrit 25.5 VOL% (42.0-52.0); Hemoglobin 8.4 GM/DL (14.0-18.0); Immature Granulocytes % 0.7 %; Immature Granulocytes Absolute 0.03 #; Lymphocytes # 1.2 10*3/uL (1.4-4.0); Lymphocytes % 27.4 % (21.2-54.2); Mean Corpuscular HGB Conc 32.9 GM/DL (32-36); Mean Corpuscular Volume 104.1 FL (87-102); Mean Platelet Volume 13.6 FL (9.6-12.0); Monocytes # 0.5 10*3/uL (0.11-0.8); Monocytes % 10.8 % (1.7-12.7); Neutrophils % 58.8 % (38.7-73.9); Platelet Count 68 T/CUMM (130-400); Red Blood Count 2.45 MC/CUMM (3.8-5.5); Red Cell Distribution Width 14.6 % (9.3-17.3); White Blood Count 4.5 T/CUMM (4-12)
[2022-06-17 06:00] LABS: Platelet Estimate Decreased
[2022-06-17 06:07] LABS: Albumin 1.9 G/DL (3.4-5.0); Calcium 7.6 MG/DL (8.5-10.1); Potassium 3.7 MMOL/L (3.5-5.1); Total Protein 4.1 G/DL (6.4-8.2)
[2022-06-17] MEDS: LACTULOSE 20 GM/30 ML UDCUP PO SCH (08:56)
[2022-06-17] MEDS: LEVOFLOXACIN 500 MG TABLET PO SCH (08:56)
[2022-06-17] MEDS: FUROSEMIDE 40 MG TABLET PO SCH (08:56)
[2022-06-17] MEDS: RIFAXIMIN 550 MG TABLET PO SCH (08:56)
[2022-06-17] MEDS: PANTOPRAZOLE 40 MG VIAL IV SCH (08:56)
[2022-06-17] MEDS: HALOPERIDOL 5 MG TABLET PO SCH (08:56)
[2022-06-17] MEDS: PROPRANOLOL 10 MG TABLET PO SCH (08:57)
[2022-06-17] MEDS: SPIRONOLACTONE 50 MG TABLET PO SCH (08:57)
[2022-06-17] MEDS ORDERED: GABAPENTIN 600 MG TABLET PO SCH (15:00)
[2022-06-17 16:01] VITALS: BP 102/46
== END 2022-06-17 16:10 | disposition home or self-care (01) ==
LOC: EDUNIT# → EDBD → N.ED 05:04 → N.EDINP 07:47 → SUATTDRO 07:47 → N.ICU 08:03 → N.3E 06-13 13:26
PROVIDERS: ADMIT Internal Medicine; ATTEND Internal Medicine